=== PATIENT | male | born 1965 | race Caucasian/White ===

== ENCOUNTER 2017-06-13 10:29 | Emergency (ER) | payer MEDICARE ==
[2017-06-13 11:29] LABS: BASOPHILS 0.1 % (0-2); EOSINOPHILS 1.5 % (0-7); HEMATOCRIT 44.2 % (42.0-54.0); HEMOGLOBIN 15.1 g/dL (13.5-17.5); IMMATURE GRANULOCYTES 0.6 % (0-5); LYMPHOCYTES 26.5 % (15-50); MCH 31.1 pg (26.0-34.0); MCHC 34.2 g/dL (31.0-37.0); MCV 91.1 fL (80.0-100.0); MEAN PLATELET VOLUME 11.2 fL (7.4-10.4); NEUTROPHILS 65.3 % (40-80); PLATELET COUNT 236 10x3/uL (130-400); RBC 4.85 10x6/uL (4.20-6.10); RDW 12.5 % (11.5-14.5); WBC 6.8 10x3/uL (4.8-10.8)
[2017-06-13 11:47] LABS: APPEARANCE CLEAR (CLEAR); BILIRUBIN NEGATIVE (NEGATIVE); COLOR DK YELLOW (YELLOW); GLUCOSE 50 mg/dL (NEGATIVE); KETONE NEGATIVE (NEGATIVE); LEUKOCYTE ESTERASE NEGATIVE (NEGATIVE); NITRITE NEGATIVE (NEGATIVE); PROTEIN NEGATIVE (NEGATIVE); UROBILINOGEN NORMAL (NORMAL)
[2017-06-13 12:43] LABS: ALBUMIN 3.5 g/dL (3.4-5.0); ALKALINE PHOSPHATASE 59 U/L (46-116); ALT (SGPT) 33 U/L (10-68); CALC OSMOLALITY 291 mosm/kg (275-300); CALCIUM 8.6 mg/dL (8.5-10.1); CARBON DIOXIDE 25.2 mmol/L (21.0-32.0); CHLORIDE - SERUM 110 mmol/L (98-107); CREATININE - SERUM 0.9 mg/dL (0.6-1.3); GLUCOSE 117 mg/dL (74-106); LIPASE 160 U/L (73-393); PROTEIN - SERUM 7.4 g/dL (6.4-8.2); SODIUM 146 mmol/L (136-145); UREA NITROGEN 12 mg/dL (7-18); eGFR NON AFRICAN AMERICAN > 90 mL/min (90-120)
== END 2017-06-13 15:15 | disposition home or self-care (01) ==
LOC: D.ER 10:29
PROVIDERS: Emergency Medicine
DX: R10.9 Unspecified abdominal pain (principal); E11.9 Type 2 diabetes mellitus without complications

== ENCOUNTER 2017-06-24 07:08 | Emergency (ER) | payer MEDICARE ==
[2017-06-24 08:07] LABS: BASOPHILS 0.2 % (0-2); EOSINOPHILS 0.9 % (0-7); HEMATOCRIT 47.2 % (42.0-54.0); HEMOGLOBIN 16.3 g/dL (13.5-17.5); IMMATURE GRANULOCYTES 0.2 % (0-5); LYMPHOCYTES 12.2 % (15-50); MCH 31.3 pg (26.0-34.0); MCHC 34.5 g/dL (31.0-37.0); MCV 90.6 fL (80.0-100.0); MEAN PLATELET VOLUME 9.5 fL (7.4-10.4); MONOCYTES 5.8 % (2-11); NEUTROPHILS 80.7 % (40-80); PLATELET COUNT 213 10x3/uL (130-400); RBC 5.21 10x6/uL (4.20-6.10); RDW 12.8 % (11.5-14.5); WBC 12.5 10x3/uL (4.8-10.8)
[2017-06-24 08:08] LABS: APPEARANCE HAZY (CLEAR); BILIRUBIN NEGATIVE (NEGATIVE); COLOR DK YELLOW (YELLOW); GLUCOSE 500 mg/dL (NEGATIVE); KETONE SMALL mg/dL (NEGATIVE); LEUKOCYTE ESTERASE NEGATIVE (NEGATIVE); NITRITE NEGATIVE (NEGATIVE); PROTEIN NEGATIVE (NEGATIVE); UROBILINOGEN NORMAL (NORMAL)
[2017-06-24 08:39] LABS: ALBUMIN 3.8 g/dL (3.4-5.0); ALKALINE PHOSPHATASE 77 U/L (46-116); ALT (SGPT) 43 U/L (10-68); AMYLASE - SERUM 49 U/L (25-115); CALC OSMOLALITY 283 mosm/kg (275-300); CALCIUM 9.1 mg/dL (8.5-10.1); CARBON DIOXIDE 23.2 mmol/L (21.0-32.0); CHLORIDE - SERUM 103 mmol/L (98-107); CREATINE KINASE 246 UL (21-232); GLUCOSE 262 mg/dL (74-106); LIPASE 141 U/L (73-393); MAGNESIUM - SERUM 1.7 mg/dL (1.8-2.4); POTASSIUM - SERUM 4.5 mmol/L (3.5-5.1); PROTEIN - SERUM 8.6 g/dL (6.4-8.2); SODIUM 137 mmol/L (136-145); UREA NITROGEN 14 mg/dL (7-18); eGFR NON AFRICAN AMERICAN 83 mL/min (90-120)
[2017-06-24 08:40] LABS: CKMB 3.5 U/L (0.0-3.6)
== END 2017-06-24 10:31 | disposition home or self-care (01) ==
LOC: D.ER 07:08
PROVIDERS: Emergency Medicine
DX: R10.9 Unspecified abdominal pain (principal)

== ENCOUNTER → 2017-06-26 12:05 | Outpatient (CLI) | payer MEDICARE | END | disposition home or self-care (01) | LOC: D.NM 12:05 | DX: R10.9 Unspecified abdominal pain (principal) ==

== ENCOUNTER 2017-07-10 05:59 | Day surgery (SDC) | payer MEDICARE ==
[~2017-07-10] VITALS: Ht 188 cm; Wt 171.9 kg
[~2017-07-10 05:59] MED LIST: ACTOS15 MG PO; GLIPIZIDE10 MG PO; GLUCOPHAGE1000 MG PO; NORCO 7.5/325 T1 TA1 PO; TRULICITY0.75 MG/0. SC; VOLTAREN75 MG PO; WELLBUTRIN SR150 MG PO
[2017-07-10 06:41] LABS: HEMATOCRIT 43.8 % (42.0-54.0); HEMOGLOBIN 14.7 g/dL (13.5-17.5); MCH 30.9 pg (26.0-34.0); MCHC 33.6 g/dL (31.0-37.0); RBC 4.76 10x6/uL (4.20-6.10); RDW 12.7 % (11.5-14.5); WBC 6.7 10x3/uL (4.8-10.8)
[2017-07-10 07:02] LABS: CALC OSMOLALITY 284 mosm/kg (275-300); CALCIUM 8.7 mg/dL (8.5-10.1); CARBON DIOXIDE 37.9 mmol/L (21.0-32.0); CHLORIDE - SERUM 105 mmol/L (98-107); POTASSIUM - SERUM 3.9 mmol/L (3.5-5.1); SODIUM 141 mmol/L (136-145); UREA NITROGEN 14 mg/dL (7-18); eGFR NON AFRICAN AMERICAN 83 mL/min (90-120)
[2017-07-10 07:12] LABS: GLUCOSE 148 mg/dL (74-106)
[2017-07-10 07:39] VITALS: BP 130/76; Ht 188 cm; Wt 171.9 kg
[2017-07-10] MEDS ORDERED: NORCO 7.5/325 T1 TA1 PO (09:31)
== END 2017-07-10 11:55 | disposition home or self-care (01) ==
LOC: D.OPS 05:59 → D.PAN 08:00 → D.OPS 08:15
PROVIDERS: Anesthesiology
DX: K80.20 Calculus of gallbladder without cholecystitis without obstruction (principal); K82.8 Other specified diseases of gallbladder; E11.9 Type 2 diabetes mellitus without complications; J44.9 Chronic obstructive pulmonary disease, unspecified; G47.30 Sleep apnea, unspecified; E66.01 Morbid (severe) obesity due to excess calories; Z68.42 Body mass index [BMI] 45.0-49.9, adult; Z01.812 Encounter for preprocedural laboratory examination

== ENCOUNTER 2017-09-25 14:15 | Emergency (ER) | payer MEDICARE ==
[2017-07-10 07:39] VITALS: BMI 48.7
[2017-09-25 14:51] LABS: BASOPHILS 0.1 % (0-2); EOSINOPHILS 0.8 % (0-7); HEMATOCRIT 47.9 % (42.0-54.0); HEMOGLOBIN 16.5 g/dL (13.5-17.5); IMMATURE GRANULOCYTES 0.4 % (0-5); LYMPHOCYTES 14.3 % (15-50); MCH 30.7 pg (26.0-34.0); MCHC 34.4 g/dL (31.0-37.0); MEAN PLATELET VOLUME 9.2 fL (7.4-10.4); MONOCYTES 8.3 % (2-11); NEUTROPHILS 76.1 % (40-80); PLATELET COUNT 243 10x3/uL (130-400); RBC 5.38 10x6/uL (4.20-6.10); RDW 12.4 % (11.5-14.5); WBC 14.7 10x3/uL (4.8-10.8)
[2017-09-25 15:15] LABS: ALBUMIN 4.1 g/dL (3.4-5.0); ANION GAP 19.7 mmol/L (8-16); BILIRUBIN - TOTAL 0.54 mg/dL (0.2-1.3); CALCIUM 9.1 mg/dL (8.5-10.1); CARBON DIOXIDE 21.7 mmol/L (21.0-32.0); CREATININE - SERUM 1.2 mg/dL (0.6-1.3); POTASSIUM - SERUM 4.4 mmol/L (3.5-5.1); PROTEIN - SERUM 8.4 g/dL (6.4-8.2)
== END 2017-09-25 19:06 | disposition home or self-care (01) ==
LOC: D.ER 14:15
PROVIDERS: Family Medicine
DX: S90.02XA Contusion of left ankle, initial encounter (principal); S90.32XA Contusion of left foot, initial encounter; S30.1XXA Contusion of abdominal wall, initial encounter; W55.29XA Other contact with cow, initial encounter; Y93.89 Activity, other specified; Y92.019 Unspecified place in single-family (private) house as the place of occurrence of the external cause; S93.402A Sprain of unspecified ligament of left ankle, initial encounter; S16.1XXA Strain of muscle, fascia and tendon at neck level, initial encounter; E11.9 Type 2 diabetes mellitus without complications

== ENCOUNTER 2019-01-17 08:30 | Day surgery (SDC) | payer MEDICARE ==
[2019-01-15 11:35] LABS: HEMATOCRIT 42.8 % (42.0-54.0); HEMOGLOBIN 14.4 g/dL (13.5-17.5); MCH 31.1 pg (26.0-34.0); MCHC 33.6 g/dL (31.0-37.0); MCV 92.4 fL (80.0-100.0); MEAN PLATELET VOLUME 8.9 fL (7.4-10.4); RBC 4.63 10x6/uL (4.20-6.10); RDW 13.2 % (11.5-14.5); WBC 7.6 10x3/uL (4.8-10.8)
[2019-01-15 11:50] LABS: CALC OSMOLALITY 288 mosm/kg (275-300); CALCIUM 8.4 mg/dL (8.5-10.1); CARBON DIOXIDE 26.8 mmol/L (21.0-32.0); CHLORIDE - SERUM 105 mmol/L (98-107); GLUCOSE 191 mg/dL (74-106); SODIUM 142 mmol/L (136-145); UREA NITROGEN 15 mg/dL (7-18); eGFR NON AFRICAN AMERICAN 83 mL/min (90-120)
[~2019-01-17] VITALS: Ht 188 cm; Wt 181.4 kg
--- NOTE | ~2019-01-17 | OP ---
PATIENT NAME: EDE PANIAGUA MEDICAL RECORD: [id number] :63 LOCATION:SCOUT ADMISSION DATE: SURGEON: SOPHIE HELM MD DATE OF OPERATION: 01/17/2019 PREOPERATIVE DIAGNOSES: Rotator cuff tear of the left shoulder with impingement syndrome and acromioclavicular arthritis. POSTOPERATIVE DIAGNOSES: Rotator cuff tear of the left shoulder with impingement syndrome, acromioclavicular arthritis, and severe biceps tendinitis. PROCEDURES: 1. Arthroscopic rotator cuff repair of the left shoulder. 2. Arthroscopic biceps tenotomy of the left shoulder. 3. Arthroscopic distal clavicle excision of the left shoulder, done through separate incision - 1 cm. 4. Arthroscopic subacromial decompression, acromioplasty, and bursectomy. SURGEON: Sophie Helm MD ANESTHESIA: General. INTRAOPERATIVE COMPLICATIONS: None. SUMMARY OF PATHOLOGIC FINDINGS: Consistent with preop diagnoses, the patient had full-thickness rotator cuff tear just posterior to the bicipital groove of the supraspinatus. The patient had severe biceps tendinopathy as well as downward sloping acromion and acromioclavicular arthritis. OPERATIVE SUMMARY IN DETAIL: After obtaining the appropriate preoperative orthopedic surgery consent as well as anesthetic consultation, evaluation, and clearance, the patient was brought to the operating room and placed on the operating table in the supine position. After general laryngeal mask was administered, the patient was placed in right lateral decubitus position. All pressure points were well padded to include down leg peroneal pad as well as axillary roll. The patient was held firmly to the operating table using the vacuum pack suction system. The patient's right upper extremity and shoulder were then prepped and draped in routine sterile fashion. The arm was held in the Arthrex traction boom at 30 degrees of forward flexion, 30 degrees of abduction, and 10 pounds of traction laterally. Arthroscopy was established in the glenohumeral joint from the posterior portal. Anterior portal was established from the anterior safe interval. Diagnostic arthroscopy did show the patient to have full-thickness rotator cuff tearing as well as impingement syndrome. In fact, the rotator cuff was torn in a split V fashion with the apex almost back to the glenoid. For this reason, it was felt that open repair would likely be better; however, prior to the open repair, attention was turned to the subacromial space. [place] tissue ablation system was utilized to denude the undersurface of the acromion of all soft tissue elements. A 5-0 barrel bur was used to perform a subacromial decompression of the acromioclavicular joint. Through a separate anterior arthroscopic portal, distal clavicle was excised for 1 cm. Having completed this, a small arthrotomy was created for direct visualization of the rotator cuff. Julq-or-rtnh repair was done with standard #2 FiberWire. At this point, an Arthrex SpeedBridge was then employed for lateral fixation i.e., medial row was then followed by crisscross and anchored lateral row for excellent reapproximation of the supraspinatus tendon back to OPERATIVE REPORT [id number] EDE PANIAGUA AXEL the supraspinatus tendinous footprint which had been decorticated. Having completed this, small arthrotomy was closed with 2-0 Vicryl followed by 4-0 Prolene. The arthroscopy portals were closed likewise. Sterile dressings were applied. The patient was awakened and taken to recovery room in stable condition. All final needle and sponge counts were correct. TRANSINT:[id number] Voice Confirmation ID: [id number] DOCUMENT ID: [id number] VOLODYMYR TATUM, SOPHIE REARDON CC: [id number] DICTATION DATE: 01/21/19916 RECORDS MANAGEMENT SPECIALIST: 01/21/19 1152 [facility] 01/17/19 [place] 117970 [place] [id number]
[~2019-01-17 08:30] MED LIST changes: -ACTOS15 MG PO; +ALBUTEROL SULF8.5 GM INH; +ALEVE220 MG PO; +IPRAT-ALBUT 0.5-3 ML UPD; +PIOGLITAZONE15 MG PO; +VICTOZA0.6 MG/0.1 SQ
[2019-01-17 09:48] VITALS: BP 141/71; Ht 188 cm; Wt 181.4 kg
[2019-01-17] MEDS ORDERED: HYDROCODON-ACE1 EA10 PO (12:41)
--- NOTE | 2019-01-17 16:24 | NUR ---
1500 IV DC'D. CATHETER INTACT. NO BLEEDING AT SITE. BANDAID APPLIED. 1505 PT SITTING UP ON SIDE OF BED. C/O BEING TIRED OF LYING ON THE STRETCHER. TOLERATING SITTING UP. NO C/O DIZZINESS. O2 SAT INCREASING AFTER SITTING UP ON SIDE OF BED.
== END 2019-01-17 16:08 | disposition home or self-care (01) ==
LOC: D.OPS 08:30 → D.PAN 11:30 → D.OPS 11:30 → D.PAN 12:45 → D.OPS 16:08
PROVIDERS: Anesthesiology; ATTEND Orthopaedic Surgery
DX: M75.122 Complete rotator cuff tear or rupture of left shoulder, not specified as traumatic (principal); M75.42 Impingement syndrome of left shoulder; M13.812 Other specified arthritis, left shoulder; M75.22 Bicipital tendinitis, left shoulder; Z01.812 Encounter for preprocedural laboratory examination

== ENCOUNTER 2019-05-11 12:45 | Emergency (ER) | payer MEDICARE ==
[~2019-05-11] VITALS: Ht 188 cm; Wt 177.7 kg
[~2019-05-11 12:45] MED LIST changes: +HYDROCODON-ACE1 EA10 PO
[2019-05-11 13:02] VITALS: Ht 188 cm; Wt 177.7 kg
[2019-05-11 14:18] LABS: BASOPHILS 0.2 % (0-2); EOSINOPHILS 0.4 % (0-7); HEMATOCRIT 48.9 % (42.0-54.0); IMMATURE GRANULOCYTES 0.4 % (0-5); LYMPHOCYTES 18.8 % (15-50); MCH 31.3 pg (26.0-34.0); MCHC 34.8 g/dL (31.0-37.0); MCV 89.9 fL (80.0-100.0); MEAN PLATELET VOLUME 9.5 fL (7.4-10.4); MONOCYTES 7.1 % (2-11); NEUTROPHILS 73.1 % (40-80); RBC 5.44 10x6/uL (4.20-6.10); RDW 12.9 % (11.5-14.5); WBC 11.6 10x3/uL (4.8-10.8)
[2019-05-11 14:27] LABS: PLATELET COUNT 258 10x3/uL (130-400)
[2019-05-11 14:32] LABS: ALKALINE PHOSPHATASE 88 U/L (46-116); ALT (SGPT) 38 U/L (10-68); AMYLASE - SERUM 66 U/L (25-115); BILIRUBIN - TOTAL 0.86 mg/dL (0.2-1.3); CALC OSMOLALITY 275 mosm/kg (275-300); CALCIUM 9.2 mg/dL (8.5-10.1); CARBON DIOXIDE 20.6 mmol/L (21.0-32.0); CHLORIDE - SERUM 100 mmol/L (98-107); CREATININE - SERUM 0.9 mg/dL (0.6-1.3); GLUCOSE 147 mg/dL (74-106); INR 1.07 (0.85-1.17); LIPASE 210 U/L (73-393); POTASSIUM - SERUM 3.8 mmol/L (3.5-5.1); PROTEIN - SERUM 8.9 g/dL (6.4-8.2); PROTIME 13.4 SECONDS (11.6-15.0); SODIUM 136 mmol/L (136-145); UREA NITROGEN 15 mg/dL (7-18); eGFR NON AFRICAN AMERICAN > 90 mL/min (90-120)
[2019-05-11 17:50] VITALS: BP 152/88
== END 2019-05-11 18:25 | disposition short-term general hospital (02) ==
LOC: D.ER 12:45
PROVIDERS: Family Medicine
DX: K22.2 Esophageal obstruction (principal)

== ENCOUNTER 2020-03-04 07:15 | Day surgery (SDC) | payer MEDICARE ==
[~2020-03-04] VITALS: Ht 188 cm; Wt 169.1 kg
--- NOTE | ~2020-03-04 | OP ---
PATIENT NAME: EDE PANIAGUA MEDICAL RECORD: [id number] :63 LOCATION:[facility] ADMISSION DATE: SURGEON: GEMMA HUERTAS DO DATE OF OPERATION: 03/04/2020 PROCEDURE: Colonoscopy with polypectomy. INDICATIONS FOR PROCEDURE: Diarrhea, irregular bowel habits, lower abdominal pain. SCOPE: Olympus video pediatric colonoscope. MEDICATIONS: Propofol 900 mg IV per anesthesia. WITHDRAWAL TIME: 14 minutes. ESTIMATED BLOOD LOSS: Minimal. COMPLICATIONS: None. FINDINGS: Informed consent was given. The patient was made comfortable with the above medication. After reaching an adequate level of sedation by slow IV push, the patient was placed on his left side. A digital rectal examination was performed and it was normal. The endoscope was then advanced under direct visualization through the rectum to the cecum, confirmed by the presence of the appendiceal orifice and ileocecal valve. The endoscope was slowly withdrawn and mucosa was carefully examined. The prep quality was poor to fair. An extensive amount of time was used cleaning out the remaining stool. There were 3 polyps visualized on today's examination. Two were located in the descending colon. They were both benign appearing and sessile and ranged in size from 4 up to 6 mm in diameter. They were both removed using a hot snare. In the ascending colon, there was a benign appearing sessile polyp, which measured approximately 4 mm in diameter. It was removed using a hot snare. There were no diverticula visualized on today's examination. Retroflexion was performed in the rectum with visualization of grade I internal hemorrhoids without bleeding. During this procedure, stool was collected to submit to the lab to rule out any infectious causes for change in bowel habits. Random biopsies were also taken to submit for histopathology and to rule out the presence of microscopic colitis. The endoscope was withdrawn from the patient. The patient tolerated the procedure well and there were no complications. IMPRESSION: 1. Three polyps as described above, removed using a hot snare. 2. Grade I internal hemorrhoids without bleeding. 3. Otherwise, normal colonoscopy. Stool was collected and random biopsies were taken. PLAN AND RECOMMENDATIONS: 1. Discharge home when recovery parameters are met. 2. Follow up biopsy specimen results. 3. High fiber diet. 4. Supplement diet with 1 tablespoon of fiber daily. 5. Dicyclomine 20 mg t.i.d. p.r.n. loose stools or abdominal pain and cramping. 6. Recall colonoscopy in 3 years. 7. Follow up in GI clinic in 1 month. OPERATIVE REPORT [id number] EDE PANIAGUA TRANSINT:[id number] Voice Confirmation ID: [id number] DOCUMENT ID: [id number] FERNANDAGEMMA WOODS CC: [id number] DICTATION DATE: 03/04/20 1048 LEASING CONSULTANT: 03/04/20 1628 [facility] 03/04/20 [place] [id number] [place] [id number]
[2020-03-04 07:43] LABS: CALC OSMOLALITY 281 mosm/kg (275-300); CALCIUM 8.5 mg/dL (8.5-10.1); CARBON DIOXIDE 26.9 mmol/L (21.0-32.0); CHLORIDE - SERUM 104 mmol/L (98-107); CREATININE - SERUM 0.8 mg/dL (0.6-1.3); SODIUM 138 mmol/L (136-145); UREA NITROGEN 6 mg/dL (7-18); eGFR NON AFRICAN AMERICAN > 90 mL/min (90-120)
[2020-03-04 07:45] LABS: GLUCOSE 239 mg/dL (74-106)
[2020-03-04 07:52] LABS: HEMATOCRIT 43.6 % (42.0-54.0); HEMOGLOBIN 14.4 g/dL (13.5-17.5); MCH 30.5 pg (26.0-34.0); MCV 92.4 fL (80.0-100.0); MEAN PLATELET VOLUME 8.8 fL (7.4-10.4); RBC 4.72 10x6/uL (4.20-6.10); WBC 5.4 10x3/uL (4.8-10.8)
[2020-03-04] MEDS ORDERED: OMEPRAZOLE20 M1 PO (08:58)
[2020-03-04] MEDS ORDERED: JANUVIA25 MG PO (08:58)
[2020-03-04 09:36] VITALS: BP 144/76; Ht 188 cm; Wt 169.1 kg
[2020-03-04] MEDS ORDERED: PIOGLITAZONE15 MG PO (09:52)
--- NOTE | 2020-03-04 11:12 | NUR ---
DC INSTRUCTIONS GIVEN TO PT/SPOUSE. STATE UNDERSTANDING. DC'D IV CATH FULLY INTACT.
--- NOTE | 2020-03-04 11:28 | NUR ---
PT LEFT UNIT VIA WC AT 1116
== END 2020-03-04 11:18 | disposition home or self-care (01) ==
LOC: D.OPS 07:15
PROVIDERS: Anesthesiology; ATTEND Internal Medicine Gastroenterology
DX: R19.7 Diarrhea, unspecified (principal); R19.4 Change in bowel habit; R13.10 Dysphagia, unspecified; R10.30 Lower abdominal pain, unspecified; K63.5 Polyp of colon; K64.0 First degree hemorrhoids; E11.9 Type 2 diabetes mellitus without complications; Z79.84 Long term (current) use of oral hypoglycemic drugs

== ENCOUNTER 2020-03-24 11:13 | Outpatient (CLI) | payer MEDICARE ==
[~2020-03-24] VITALS: Ht 188 cm; Wt 169.5 kg
--- NOTE | ~2020-03-24 | HEMODYNAMI ---
PATIENT:EDE PANIAGUA MEDICAL RECORD: [id number] : 63 LOCATION:[facility] ADMISSION DATE: 03/24/20 Generatedon:03/24/202013:30 Patient name: EDE PANIAGUA Patient #: [id number] : 1965 Date of study: 03/24/2020 Page: Of Hemodynamic Procedure Report Patient Data Patient Demographics Procedure consent was obtained First Name: EDE Gender: Male Last Name: ARCELIA : 1965 Middle Initial: AXEL Age: 54 year(s) Patient #: [id number] Race: SSN: [id number] Additional ID: [id number] Contact details Address: [address] [place] [address] State: [place] City: [place] Zip code: [address] Past Medical History Allergies Allergen Reaction Date Comments Reported Other allergy 03/24/2020 SEAFOOD, WASPS, IODINE Admission Admission Data Admission Date: 03/24/2020 Admission Time: 11:13 Arrival Date: 03/24/2020 Arrival Time: 13:30 Admit Source: Other Insurance Payor: Medicare [facility] #: [id number] Height (in.): 73.62 BSA: 2.82 (m2) Height (cm.): 187 BMI: 48.33 (kg/m2) Weight (lbs.): 372.58 Weight (kg.): 169 Lab Results Lab Result Date: 03/24/2020 Lab Result Time: 0:00 Biochemistry Name Units Result Min Max BUN mg/dl 14 --(--*-)-- 7 18 Creatinine mg/dl 1 --(--*-)-- 0.6 1.3 eGFR ml/min 82.62557 *-(----)-- 90 120 NONAFRICAN Procedure Procedure Types Cath Procedure Diagnostic Procedure LHC [facility] w/Coronaries Sedation Charges Moderate Sedation up to 15 minutes Procedure Description Procedure Date Procedure Date: 03/24/2020 Procedure Start Time: 13:11 Procedure End Time: 13:26 Procedure Staff Name Function Sherwin Gomez MD Performing Physician Stephanie Rosado RT Monitor Cindi Fang RT Scrub Floyd Will RN Nurse Procedure Data Cath Procedure Fluoroscopy Diagnostic fluoroscopy Total fluoroscopy Time: 5.7 time: 5.7 min min Diagnostic fluoroscopy Total fluoroscopy dose: 871 dose: 871 mGy mGy Contrast Material Contrast Material Type Amount (ml) Isovue 300 71 Entry Location Entry Primary Successful Side Size Upsize Upsize Entry Closure Bazzi ccessful Closure Location (Fr) 1 (Fr) 2 (Fr) Remarks Device Remarks Radial Right 6 Fr Mechanical artery Short Compression Estimated blood loss: 5 ml Diagnostic catheters Device Type Used For End Catheter Placement DIAGNOSTIC [place] 110cm 5 Multi-vessel Fr catheter ([id number]) Angiography DIAGNOSTIC Pigtail 5Fr LV Angiography catheter ([id number]) Procedure Complications No complications Procedure Medications Medication Administration Route Dosage Oxygen etCO2 Nasal cannula 2 l/min Lidocaine 2% added to field 20 Heparin Flush Bag added to field 2 bags (1000units/500ml NS) 0.9% NaCl I.V. 100 ml/hr Versed I.V. 2 mg Fentanyl I.V. 100 mcg Radial Cocktail I.A. 1 syringe (Verapamil 2mg/Nitro 400mcg/Heparin 1500units) Lopressor I.V. 5 mg Versed I.V. 2 mg Fentanyl I.V. 100 mcg Hemodynamics Rest BSA: 2.82 (m2) O2 Consumption: Estimated: 365.35 (ml/min) O2 Consumption indexed : Estimated:129.56 (ml/min/m) Heart Rate: 99 (bpm) Pressure Samples Time Site Value (mmHg) Purpose Heart Use Rate(bpm) 13:23 LV 166/71,45 Snapshot 103 Gradients Valve Time Site Site Mean SEP/DFP Peak To Heart Use 1 2 (mmHg) (sec/min) Peak Rate (mmHg) (bpm) Aortic 13:23 LV AO 106 Snapshots Pre Cath Intra NCS Post Cath Vital Signs Time Heart Resp SPO2 etCO2 NIBP (mmHg) Rhythm Pain Sedation Rate (ipm) (%) (mmHg) Status Level (bpm) 13:04:44 99 13 95 0 167/89(132) NSR 0 (11) 10(A) , No pain 13:09:31 99 11 93 0 160/93(128) NSR 0 (11) 10(A) , No pain 13:14:10 99 12 93 0 144/83(118) NSR 0 (11) 10(A) , No pain 13:18:46 99 36 94 0 129/86(111) NSR 0 (11) 9(A) , No pain 13:23:45 101 20 97 0 146/89(0) NSR 0 (11) 9(A) , No pain 13:28:09 94 36 95 0 161/90(121) NSR 0 (11) 10(A) , No pain Medications Time Medication Route Dose Verified Delivered Reason Notes Effectiveness by by 13:04:46 Oxygen etCO2 2 l/min Sherwin Barrientos used for Nasal [facility] Will RN procedure cannula 13:04:53 Lidocaine 2% added 20ml Sherwin Courtney for local to vial [facility] anesthetic field MD TATUM 13:04:59 Heparin Flush added 2 bags Sherwin Courtney used for Bag to [facility] procedure (1000units/500ml field MD TATUM NS) 13:05:08 0.9% NaCl I.V. 100 Sherwin Barrientos Per ml/hr [facility] garg MD 13:11:12 Versed I.V. 2 mg Sherwin Barrientos for sedation [facility] Will RN, MD 13:11:22 Fentanyl I.V. 100 mcg Sherwin Barrientos for sedation [facility] Will RN, MD 13:13:36 Radial Cocktail I.A. 1 Sherwin Courtney for (Verapamil syringe [facility] vasodilation 2mg/Nitro MD TATUM 400mcg/Heparin 1500units) 13:16:00 Versed I.V. 2 mg Sherwin Barrientos for sedation [facility] Will RN, MD 13:16:04 Fentanyl I.V. 100 mcg Sherwin Barrientos for sedation [facility] Will RN, MD 13:22:59 Lopressor I.V. 5 mg Sherwin Barrientos Per [facility] garg MD Procedure Log Time Note 12:39:50 Informed consent obtained and on chart 12:41:24 Arrival Date: 03/24/2020 1:30:00 PM 12:41:45 Admit Source: Other 12:41:48 Insurance Payor : Medicare 12:43:49 Patient Height : 73.62 inches 12:43:54 Patient Weight : 372.58 lbs 12:44:20 Diagnostic Cath Status : Elective 12:44:46 Procedure Status Elective Heart Cath (OP). 12:44:49 Floyd Will RN sent for patient. Start room use. 12:44:50 Time tracking: Regular hours (M-F 7:00 - 5:00) 12:44:57 Plan of Care:Hemodynamics will remain stable., Cardiac rhythm will remain stable., Comfort level will be maintained., Respiratory function will remain adequate., Patient/ family verbilizes understanding of procedure., Procedure tolerated without complication., Recovers from procedure without complications.. 12:54:40 Patient received from Pre/Post Procedure Room to CCL 1 Alert and oriented. Tansferred to table in Supine position. 12:54:41 Warm blankets applied, and surinder hugger turned on for patient comfort. 12:54:42 Correct patient and procedure confirmed by team. 12:54:43 ECG and BP/O2 sat monitors applied to patient. 12:56:27 H&P Date Dictated: 03/13/2020 Within 30 days and on chart., H&P Addendum completed by physician on day of procedure. (MUST COMPLETE FOR ALL OUTPATIENTS). 12:56:28 Pre-procedure instructions explained to patient. 12:56:28 Pre-op teaching completed and patient verbalized understanding. 12:56:30 Family in patients room. 12:56:31 Patient NPO since Midnight. 12:56:45 Patient allergic to Other allergySEAFOOD, WASPS, IODINE 12:56:47 Is the patient allergic to Iodine/contrast media? Yes. 12:56:48 Was the patient premedicated? Yes 12:56:50 Is patient on blood thinner?No 12:56:53 Patient diabetic? Yes. 12:56:54 If diabetic: On Metformin? Yes 12:56:56 If on Metformin: Last Dose? 03/22/2020 12:56:59 Previous problem with sedation/anesthesia? Yes ? 12:57:01 Snore? Yes 12:57:02 Sleep apnea? Yes 12:57:04 Deviated septum? No 12:57:05 Opens mouth fully? Yes 12:57:07 Sticks out tongue? Yes 12:57:09 Airway obstruction? Yes COPD 12:57:13 Dentures? No ? 12:58:15 Modified Wayne's test Ulnar < 7 seconds 12:58:17 Patient pain scale 0/10 ?. 12:58:22 IV patent on arrival in left hand with 0.9% NaCl at [facility]. 12:58:48 Lab Result : Creatinine 1 mg/dl 12:58:48 Lab Result : BUN 14 mg/dl 12:58:48 Lab Result : eGFR NONAFRICAN 82.80591 ml/min 12:58:50 Lab results completed and on chart. 12:59:17 Stress Test: no; N/A ? 12:59:21 Right Radial & Right Groin area was prepped with chlora-prep and draped in sterile fashion 12:59:22 Alarms reviewed by R. N. 12:59:22 Sharps counted by scrub and verified by R.N. 13:02:08 Use device set Radial Dx or PCI 13:02:44 ACIST Syringe (71262) opened to sterile field. 13:02:46 Bag Decanter (2002S) opened to sterile field. 13:02:46 ACIST Hand Control (86857) opened to sterile field. 13:02:46 ACIST Manifold (60990) opened to sterile field. 13:02:47 Tegaderm 4 x 4 (1626W) opened to sterile field. 13:02:48 Medline Cath Pack ([id number]) opened to sterile field. 13:02:49 MBrace Wrist Support ([id number]) opened to sterile field. 13:02:50 EMERALD Guide Wire (355-182) opened to sterile field. 13:02:50 SHEATH 6FR RAIN (0779512) opened to sterile field. 13:02:57 Vital chart was started 13:02:59 Baseline sample Acquired. 13:03:02 Rhythm: sinus rhythm 13:03:03 Full Disclosure recording started 13:03:10 Pre procedure: right dorsailis pedis pulse 1+ Palpable, but thready & weak; easily obliterated 13:04:46 Oxygen 2 l/min etCO2 Nasal cannula was administered by Floyd Will RN; used for procedure; Verbal order read back and verified. 13:04:53 Lidocaine 2% 20ml vial added to field was administered by Sherwin Gomez MD; for local anesthetic; Verbal order read back and verified. 13:04:59 Heparin Flush Bag (1000units/500ml NS) 2 bags added to field was administered by Sherwin Gomez MD; used for procedure; Verbal order read back and verified. 13:05:08 0.9% NaCl 100 ml/hr I.V. was administered by Floyd Will RN; Per physician; Verbal order read back and verified. 13:09:44 Risk of Mortality: 0.2 13:09:50 Risk of blood transfusion: 0.1 13:09:54 Risk of JAZMIN: 0.2 13:10:08 Physician arrived 13:: --------ALL STOP TIME OUT------ 13:: Final Timeout: patient, procedure, and site verified with staff and physician. All members of the team are in agreement. 13:10:11 Right Radial & Right Groin site verified by team. 13:10:16 Fire Safety Assessment: A--An alcohol-based skin anteseptic being used preoperatively., C--Open oxygen or nitrous oxide is being used., D--An ESU, laser, or fiber-optic light is being used. 13:10:18 Physical assessment completed. ASA score P 2 - A patient with mild systemic disease as per Sherwin Gomez MD. 13:10:26 2) 60-89 Mildly reduced kidney function, and other findings (as for stage 1) point to kidney disease. 13:10:45 Maximum allowable contrast dose (3.7 X eGFR X 0.75)208 ml. 13:10:56 Sedation plan: IV Moderate Sedation Medication:Versed, Fentanyl 13:11:02 Procedure started. 13:11:06 Local anesthetic to right radial artery with Lidocaine 2% by Sherwin Gomez MD.INITIAL ACCESS ONLY 13:11:12 Versed 2 mg I.V. was administered by Floyd Will RN; for sedation; Verbal order read back and verified. 13:11:22 Fentanyl 100 mcg I.V. was administered by Floyd Will RN; for sedation; Verbal order read back and verified. 13:13:36 Radial Cocktail (Verapamil 2mg/Nitro 400mcg/Heparin 1500units) 1 syringe I.A. was administered by Sherwin Gomez MD; for vasodilation; Verbal order read back and verified. 13:13:41 A 6 Fr Short sheath was inserted into the Right Radial artery 13:14:36 A DIAGNOSTIC [place] 110cm 5 Fr catheter ([id number]) was advanced over the wire and used for Multi-vessel Angiography. 13:16:00 Versed 2 mg I.V. was administered by Floyd Will RN; for sedation; Verbal order read back and verified. 13:16:04 Fentanyl 100 mcg I.V. was administered by Floyd Will RN; for sedation; Verbal order read back and verified. 13:17:03 RCA angiography performed. 13:17:06 Injector settings: Ml/sec: 3, Volume: 6, 13:17:55 Catheter removed. 13:19:00 GUIDE 5FR EBU 3.5 catheter ([id number]) opened to sterile field. 13:21:04 LCA angiography performed. 13:21:06 Injector settings: Ml/sec: 3, Volume: 6, 13:22:01 Catheter removed. 13:22:11 A DIAGNOSTIC Pigtail 5Fr catheter ([id number]) was advanced over the wire and used for LV Angiography. 13:22:59 Lopressor 5 mg I.V. was administered by Floyd Will RN; Per physician; Verbal order read back and verified. 13:23:25 LV hemodynamics recorded. 13:23:26 LV gram done using CHAVIS 13:23:29 Injector settings: Ml/sec: 5, Volume: 15, 13:23:41 EF : 55 % 13:23:47 Catheter removed. 13:23:55 Sheath removed intact; hemostasis achieved with Mechanical Compression to the Right Radial artery. 13:23:57 Procedure ended.(Physican Out) 13:24:45 Fluoroscopy time 05.70 minutes. 13:24:49 Fluoroscopy dose: 871 mGy 13:24:49 Flurop Dose total: 871 13:24:54 Dose Area Product 89664 mGy/cm. 13:24:59 Contrast amount:Isovue 300 71ml. 13:25:00 Maximum allowable dose exceeded? No. 13:25:02 Sharps counted by scrub and verified by R.N. 13:25:04 [place] band inflated with 9cc of air. 13:25:06 Insertion/operative site no bleeding no hematoma. 13:25:09 Post right radial artery:stable 13:25:11 Post Procedure Pulses reassessed and unchanged 13:25:20 Post procedure rhythm: unchanged. 13:25:23 Estimated blood loss: 5 ml 13:25:25 Post procedure instruction explained to patient.Patient verbalizes understanding. 13:25:25 Patient needs reinforcement of post procedure teaching. 13:25:36 Procedure type changed to Cath procedure, Diagnostic procedure, LHC, C w/Coronaries, Sedation Charges, Moderate Sedation up to 15 minutes 13:25:57 Procedure and supply charges have been captured, reviewed, submitted and are correct. 13:26:03 Procedure Complication : No complications 13:26:07 Vital chart was stopped 13:26:09 [facility] Findings: mild to moderate CAD (<70%) 13:26:10 Operative report dictated upon procedure completion. 13:26:11 See physician's report for complete and final results. 13:26:13 Report given to Pre/Post Procedure Room. 13:26:15 Patient transfered to Pre/Post Procedure Room with Stretcher. 13:26:17 Procedure ended. 13:26:17 Full Disclosure recording stopped 13::22 End room use (Document Last) 13:29:14 ZEPHYR LARGE TR BAND (686738) opened to sterile field. 13:29:52 TR BAND Standard ([id number]) opened to sterile field. 13:30:10 TR BAND Large ([id number]) opened to sterile field. Device Usage Item Name Manufacture Quantity Catalog Hospital Part Current Minima l Lot# / Number Charge Number Stock Stock Serial# Code ACIST Acist 1 58806 037784 922664 029002 20 Syringe Medical (03830) Systems Inc Bag Microtek 1 008404 45910 451046 5 Decanter Medical Inc. () ACIST Hand Acist 1 64061 780798 460998 497327 5 Control Medical (11917) Systems Inc ACIST Acist 1 83199 379643 565318 864848 5 Manifold Medical (97234) Systems Inc Tegaderm 4 3M 1 1626W 355707 615027 747143 5 x 4 (1626W) Medline Medline 1 [id number] 250334 17780 994355 5 Cath Pack ([id number]) MBrace Advanced 1 140-0250-00 579518 11501 350312 5 Wrist Vascular Support Dynamics ([id number]) EMERALD Cardinal 1 502-075 180323 299537 645701 5 Guide Wire [facility] (266-571) SHEATH 6FR Cardinal 1 [id number] 875206 0674835 432492 5 [facility] (7204711) DIAGNOSTIC Terumo 1 40-5356 946765 612787 317085 5 [place] 110cm 5 Fr catheter (965917) GUIDE 5FR Medtronic 1 [id number] 488048 826499 103996 1 EBU 3.5 catheter ([id number]) DIAGNOSTIC Cardinal 1 [id number] 215372 075224 409355 5 Pigtail 5Fr Health catheter (923455S) ZEPHYR Cardinal 1 680927 852909 5563026 371556 5 LARGE TR Health BAND (030979) TR BAND Terumo 1 [id number] 866687 223721 507851 40 Standard ([id number]) TR BAND Terumo 1 [id number] 824471 657689 995813 40 Large ([id number]) Signature Audit [place] Stage Time Signature Unsigned Intra-Procedure 03/24/2020 Stephanie Rosado 1:29:52 PM RT(R) Intra-Procedure 03/24/2020 Floyd Will RN 1:30:10 PM Intra-Procedure 03/24/[address] 1:30:36 PM Christopher [place]UM [place] [id number] [place] [address]
[~2020-03-24 11:13] MED LIST changes: +JANUVIA25 MG PO; +OMEPRAZOLE20 M1 PO
[2020-03-24] MEDS ORDERED: PIOGLITAZONE15 MG PO (11:39)
[2020-03-24] MEDS ORDERED: VICTOZA0.6 MG/0.1 SQ (11:39)
[2020-03-24] MEDS ORDERED: OMEPRAZOLE20 M1 PO (11:40)
[2020-03-24 11:55] VITALS: BP 158/86; Ht 188 cm; Wt 169.5 kg
[2020-03-24 12:29] LABS: ALT (SGPT) 44 U/L (10-68); CALC OSMOLALITY 282 mosm/kg (275-300); CALCIUM 8.7 mg/dL (8.5-10.1); CHLORIDE - SERUM 100 mmol/L (98-107); CHOL - HDL RATIO 2.1 ratio (2.3-4.9); CHOLESTEROL, TOTAL 146 mg/dL (0-200); GLUCOSE 347 mg/dL (74-106); HDL CHOLESTEROL 70 mg/dL (32-96); LDL CHOLESTEROL 71 mg/dL (0-100); POTASSIUM - SERUM 4.2 mmol/L (3.5-5.1); SODIUM 134 mmol/L (136-145); TRIGLYCERIDE 28 mg/dL (30-200); UREA NITROGEN 14 mg/dL (7-18); eGFR NON AFRICAN AMERICAN 82 mL/min (90-120)
[2020-03-24 12:48] LABS: HEMATOCRIT 46.6 % (42.0-54.0); HEMOGLOBIN 15.7 g/dL (13.5-17.5); LYMPHOCYTES 8.1 % (15-50); MCH 30.1 pg (26.0-34.0); MCHC 33.7 g/dL (31.0-37.0); MCV 89.3 fL (80.0-100.0); MEAN PLATELET VOLUME 9.3 fL (7.4-10.4); NEUTROPHILS 90.7 % (40-80); PLATELET COUNT 241 10x3/uL (130-400); RBC 5.22 10x6/uL (4.20-6.10); RDW 12.7 % (11.5-14.5); WBC 9.3 10x3/uL (4.8-10.8)
--- NOTE | 2020-03-24 13:40 | NUR ---
PT REC'D TO ROOM 8 VIA STRETCHER FROM INFORMATION TECHNOLOGY COORDINATOR. MONITORS ESTAB. PT DROWSY, AT BS. SEE DIRECTOR ORANGE. ALARMS ON AND C/L IN REACH.
--- NOTE | 2020-03-24 13:55 | NUR ---
R WRIST SITE C/D/I, NO S/S BLEEDING OR SWELLING. PULSES PALP, BRISK CAP REFILL. VSS. PT GIVEN WATER AND GLUCERNA PER REQUEST. ALARMS ON AND C/L IN REACH.
--- NOTE | 2020-03-24 14:25 | NUR ---
R WRIST SITE C/D/I, NO S/S BLEEDING, BRISK CAP REFILL. PT SITTING UP IN BED, SANDWICH TRAY PROVIDED. AT BS. ALARMS ON AND C/L IN REACH.
--- NOTE | 2020-03-24 14:40 | NUR ---
3CC AIR REMOVED FROM Z BAND. NO S/S BLEEDING. VSS. C/L IN REACH.
--- NOTE | 2020-03-24 14:50 | NUR ---
TOTAL 5CC AIR REMOVED FROM Z BAND, NO S/S BLEEDING.
--- NOTE | 2020-03-24 15:00 | NUR ---
ALL AIR REMOVED FROM Z BAND, NO S/S BLEEDING. VSS. WILL CONT CLOSE MONITORING.
--- NOTE | 2020-03-24 15:15 | NUR ---
Z BAND REMOVED, NO S/S BLEEDING. DSG APPLIED. PIV D/C'D INTACT, DSG APPLIED. PT UP TO GET DRESSED AND GO TO BR INDEPENDENTLY.
--- NOTE | 2020-03-24 15:25 | NUR ---
ARM BOARD IN PLACE. ALL D/C INSTRUCTIONS REVIEWED WITH PT AND .
--- NOTE | 2020-03-24 15:35 | NUR ---
PT D/C'D TO PRIVATE VEHICLE WITH . PT HAS ALL PAPER WORK AND BELONGINGS.
--- NOTE | 2020-03-25 09:31 | OP ---
PATIENT NAME: EDE PANIAGUA MEDICAL RECORD: [id number] :63 LOCATION:D.CAT ADMISSION DATE: SURGEON: MATTHEW SANCHEZ MD DATE OF OPERATION: 03/24/2020 PROCEDURE: Left heart catheterization, selective coronary angiography, right radial approach. CATHETERS: [place] catheter, radial sheath. The procedure was well tolerated. The patient returned to the gomez, sheath removed, TR band placed. FINDINGS: Left ventriculography in 30-degree CHAVIS view; normal wall motion, normal systolic function. CORONARY ANATOMY: LEFT MAIN: Left main is free of disease. LAD: Free of disease in the diagonal system. CIRCUMFLEX: Free of disease in the marginal system. RIGHT CORONARY ARTERY: Dominant artery, gives rise to PDA, free of disease. IMPRESSION: Normal LV systolic function, normal coronary anatomy. TRANSINT:[id number] Voice Confirmation ID: [id number] DOCUMENT ID: [id number] MATTHEW SANCHEZ MD at 0931 CC: [id number] DICTATION DATE: 03/24/20 1340 SUPERVISOR METER SHOP: 03/25/20 0048 DEP CLI 03/24/20 [place] [id number] [place] [id number]
== END 2020-03-24 15:35 | disposition home or self-care (01) ==
LOC: D.CATH 11:13
PROVIDERS: ATTEND Internal Medicine Interventional Cardiology
DX: R60.9 Edema, unspecified (principal); I25.119 Atherosclerotic heart disease of native coronary artery with unspecified angina pectoris; E78.5 Hyperlipidemia, unspecified; E11.9 Type 2 diabetes mellitus without complications; Z79.84 Long term (current) use of oral hypoglycemic drugs

== ENCOUNTER 2020-04-01 16:49 | Emergency (ER) | payer MEDICARE ==
[~2020-04-01] VITALS: Ht 188 cm; Wt 175.5 kg
[2020-04-01 16:57] VITALS: Ht 188 cm; Wt 175.5 kg
[2020-04-01] MEDS ORDERED: BENTYL 20 MG TA20 MG PO (17:01)
[2020-04-01] MEDS ORDERED: CYCLOBENZAPRINE10 MG PO (17:01)
[2020-04-01] MEDS ORDERED: GLIPIZIDE10 MG PO (17:01)
[2020-04-01] MEDS ORDERED: PIOGLITAZONE15 MG PO (17:02)
[2020-04-01] MEDS ORDERED: ATIVAN1 MG PO (17:02)
[2020-04-01 17:56] LABS: BASOPHILS 0.3 % (0-2); EOSINOPHILS 1.3 % (0-7); HEMATOCRIT 43.2 % (42.0-54.0); HEMOGLOBIN 14.3 g/dL (13.5-17.5); IMMATURE GRANULOCYTES 0.1 % (0-5); LYMPHOCYTES 28.1 % (15-50); MCH 30.6 pg (26.0-34.0); MCHC 33.1 g/dL (31.0-37.0); MCV 92.3 fL (80.0-100.0); MEAN PLATELET VOLUME 9.3 fL (7.4-10.4); MONOCYTES 8.1 % (2-11); NEUTROPHILS 62.1 % (40-80); RBC 4.68 10x6/uL (4.20-6.10); RDW 12.9 % (11.5-14.5); WBC 6.7 10x3/uL (4.8-10.8)
[2020-04-01 18:02] LABS: PLATELET COUNT 174 10x3/uL (130-400)
[2020-04-01 18:09] LABS: APTT 25.2 SECONDS (22.8-39.4); INR 1.02 (0.85-1.17); PROTIME 13.3 SECONDS (11.6-15.0)
[2020-04-01 18:10] LABS: D-DIMER-QUANTITATIVE < 0.27 ug/mLFEU (0.20-0.54)
[2020-04-01 18:20] LABS: CALC OSMOLALITY 284 mosm/kg (275-300); CALCIUM 8.1 mg/dL (8.5-10.1); CARBON DIOXIDE 26.3 mmol/L (21.0-32.0); CHLORIDE - SERUM 104 mmol/L (98-107); CREATININE - SERUM 1.1 mg/dL (0.6-1.3); POTASSIUM - SERUM 3.9 mmol/L (3.5-5.1); SODIUM 138 mmol/L (136-145); UREA NITROGEN 13 mg/dL (7-18); eGFR NON AFRICAN AMERICAN 74 mL/min (90-120)
[2020-04-01 18:26] LABS: GLUCOSE 266 mg/dL (74-106)
[2020-04-01 18:36] LABS: ALBUMIN 3.3 g/dL (3.4-5.0); ALKALINE PHOSPHATASE 77 U/L (30-120); ALT (SGPT) 46 U/L (10-68); BILIRUBIN - TOTAL 0.36 mg/dL (0.2-1.3); CKMB 1.6 U/L (0.0-3.6); CREATINE KINASE 107 UL (21-232); MAGNESIUM - SERUM 1.8 mg/dL (1.8-2.4); PROTEIN - SERUM 6.9 g/dL (6.4-8.2)
[2020-04-01 18:37] LABS: TROPONIN-I < 0.017 ng/mL (0.000-0.060)
[2020-04-01] MEDS ORDERED: PROTONIX40 MG PO (18:58)
[2020-04-01] MEDS ORDERED: LISINOPRIL2.5 MG PO (18:59)
[2020-04-01 19:21] VITALS: BP 134/60
== END 2020-04-01 19:21 | disposition home or self-care (01) ==
LOC: D.ER 16:49
PROVIDERS: Family Medicine
DX: E11.65 Type 2 diabetes mellitus with hyperglycemia (principal); K21.9 Gastro-esophageal reflux disease without esophagitis; I10 Essential (primary) hypertension; J44.9 Chronic obstructive pulmonary disease, unspecified; E11.40 Type 2 diabetes mellitus with diabetic neuropathy, unspecified; Z79.84 Long term (current) use of oral hypoglycemic drugs; R53.83 Other fatigue

== ENCOUNTER 2020-04-03 10:35 | Day surgery (SDC) | payer MEDICARE ==
[~2020-04-03] VITALS: Ht 188 cm; Wt 169.1 kg
[~2020-04-03 10:35] MED LIST changes: +ATIVAN1 MG PO; +BENTYL 20 MG TA20 MG PO; +CYCLOBENZAPRINE10 MG PO; +LISINOPRIL2.5 MG PO; +PROTONIX40 MG PO
[2020-04-03 10:59] LABS: HEMATOCRIT 45.8 % (42.0-54.0); HEMOGLOBIN 15.1 g/dL (13.5-17.5); MCH 30.3 pg (26.0-34.0); MCV 91.8 fL (80.0-100.0); MEAN PLATELET VOLUME 9.1 fL (7.4-10.4); RBC 4.99 10x6/uL (4.20-6.10); RDW 12.7 % (11.5-14.5); WBC 6.2 10x3/uL (4.8-10.8)
[2020-04-03 11:09] LABS: CALC OSMOLALITY 285 mosm/kg (275-300); CALCIUM 8.6 mg/dL (8.5-10.1); CARBON DIOXIDE 26.2 mmol/L (21.0-32.0); CHLORIDE - SERUM 104 mmol/L (98-107); CREATININE - SERUM 0.9 mg/dL (0.6-1.3); GLUCOSE 283 mg/dL (74-106); POTASSIUM - SERUM 4.2 mmol/L (3.5-5.1); SODIUM 138 mmol/L (136-145); UREA NITROGEN 12 mg/dL (7-18); eGFR NON AFRICAN AMERICAN > 90 mL/min (90-120)
[2020-04-03 12:45] VITALS: BP 132/78; Ht 188 cm; Wt 169.1 kg
--- NOTE | 2020-04-03 13:59 | NUR ---
DC INSTRUCTIONS GIVEN TO PT. STATES UNDERSTANDING. DC'D IV CATH FULLY INTACT. PT LEFT UNIT VIA WC AT 1351.
--- NOTE | 2020-04-04 08:31 | OP ---
PATIENT NAME: EDE PANIAGUA MEDICAL RECORD: [id number] :63 LOCATION:SCOUT ADMISSION DATE: SURGEON: GEMMA HUERTAS DO DATE OF OPERATION: 04/03/2020 PROCEDURE: EGD with biopsies. INDICATIONS FOR PROCEDURE: Dysphagia, GERD, gas and bloating, nausea. SCOPE: Olympus video gastroscope. MEDICATIONS: Propofol 300 mg IV per anesthesia. ESTIMATED BLOOD LOSS: Minimal. COMPLICATIONS: None. FINDINGS: Informed consent was given. The patient was made comfortable with the above medication. After reaching an adequate level of sedation by slow IV push, the patient was placed in the left side. The endoscope was advanced under direct visualization through the mouth to the second portion of the duodenum with ease. The mucosa of the esophagus appeared normal in its entirety, but there was extremely dilated. There were no food particles or fluid retained in the esophagus itself. At the GE junction, there was evidence of LA class A reflux-induced esophagitis and possible Contreras's mucosa. Cold forceps biopsies were taken from this site to submit for histopathology and to rule out the presence of Contreras's. At this site there seemed to be some extrinsic compression, suggesting that the prior intervention in the form of a lap band has slid up to the GE junction and is causing some compression at that site. The endoscope was able to traverse the site without difficulty. The endoscope was retroflexed to view the cardia and fundus where there was evidence of a prior intervention. The fundus and body of the stomach appeared normal. In the antrum and prepyloric regions, there was some erythema and granularity consistent with mild gastritis. Cold forceps, biopsies were taken from the antrum and incisura to submit for histopathology and to rule out the presence of H. pylori. The endoscope was advanced beyond the pylorus into the duodenum, which appeared normal to the second portion. Cold forceps, biopsies were taken to submit for histopathology. The endoscope was withdrawn from the patient. The patient tolerated the procedure well and there were no complications. IMPRESSION: 1. Severely dilated esophagus. 2. 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 3. Evidence of prior surgery in the form of a laparoscopic band placement, which appears to be located at the GE junction and possibly contributing to the patient's symptoms of dysphagia evidenced by dilated esophagus as well as possibly gas and bloating. 4. Mild chronic gastritis changes. PLAN AND RECOMMENDATIONS: 1. Discharge home when recovery parameters are met. 2. Follow up biopsy specimen results. 3. GERD diet and reflux precautions. 4. Increase omeprazole to 40 mg daily. OPERATIVE REPORT [id number] EDE PANIAGUA 5. Consider removal of gastric lap band. 6. If all the same symptoms are present after removal of lap band would recommend proceeding with a manometry study to rule out the presence of achalasia. 7. The patient's symptoms are also consistent with gastroparesis. Could consider a gastric emptying scan prior to removal of lap band to determine if symptoms are gastroparesis in the setting of a diabetic patient. 8. Follow up in GI clinic in 3-4 weeks after increasing omeprazole to determine further course of action and workup. TRANSINT:[id number] Voice Confirmation ID: [id number] DOCUMENT ID: [id number] GEMMA HUERTAS DO at 0831 CC: [id number] DICTATION DATE: 04/03/20 1316 DINING ROOM ATTENDANT: 04/03/20 2229 [facility] 04/03/20 [place] [id number] [place] [address]
== END 2020-04-03 13:51 | disposition home or self-care (01) ==
LOC: D.OPS 10:35
PROVIDERS: Anesthesiology; ATTEND Internal Medicine Gastroenterology
DX: R13.10 Dysphagia, unspecified (principal); K21.9 Gastro-esophageal reflux disease without esophagitis; R14.0 Abdominal distension (gaseous); R11.0 Nausea; E11.9 Type 2 diabetes mellitus without complications; Z79.84 Long term (current) use of oral hypoglycemic drugs; R10.30 Lower abdominal pain, unspecified

== ENCOUNTER 2020-04-15 07:08 | Day surgery (SDC) | payer MEDICARE ==
[~2020-04-15] VITALS: Ht 188 cm; Wt 172.8 kg
[~2020-04-15 07:08] MED LIST changes: -ATIVAN1 MG PO; +ATIVAN2 MG PO; +BENTYL10 MG PO
[2020-04-15 07:59] LABS: CALC OSMOLALITY 286 mosm/kg (275-300); CALCIUM 8.8 mg/dL (8.5-10.1); CARBON DIOXIDE 24.5 mmol/L (21.0-32.0); CHLORIDE - SERUM 105 mmol/L (98-107); CREATININE - SERUM 0.8 mg/dL (0.6-1.3); GLUCOSE 251 mg/dL (74-106); POTASSIUM - SERUM 4.2 mmol/L (3.5-5.1); SODIUM 139 mmol/L (136-145); UREA NITROGEN 15 mg/dL (7-18); eGFR NON AFRICAN AMERICAN > 90 mL/min (90-120)
[2020-04-15 08:00] LABS: BASOPHILS 0.1 % (0-2); EOSINOPHILS 2.2 % (0-7); HEMATOCRIT 45.2 % (42.0-54.0); HEMOGLOBIN 14.9 g/dL (13.5-17.5); IMMATURE GRANULOCYTES 0.3 % (0-5); LYMPHOCYTES 26.6 % (15-50); MCH 30.2 pg (26.0-34.0); MCV 91.5 fL (80.0-100.0); MEAN PLATELET VOLUME 9.6 fL (7.4-10.4); NEUTROPHILS 62.8 % (40-80); PLATELET COUNT 210 10x3/uL (130-400); RBC 4.94 10x6/uL (4.20-6.10); RDW 12.6 % (11.5-14.5); WBC 6.9 10x3/uL (4.8-10.8)
[2020-04-15 08:29] VITALS: BP 121/68; Ht 188 cm; Wt 172.8 kg
[2020-04-15] MEDS ORDERED: HYDROCODON-ACE1 EAC7 PO (11:19)
--- NOTE | 2020-04-15 12:53 | NUR ---
A&Ox4.VSS.NO DISTRESS.PAIN 01/23. TOLERATED DIET RADHA LEMON [place] AND [place]. NO N/V
--- NOTE | 2020-04-15 13:44 | NUR ---
1315-REMOVED IV WITH CATH INTACT,DISPOSED INTO SHARPS,COVERED WITH GUAZE,SECURED WITH MEDIPORE TAPE. AMBULATED TO RESTROOM AND VOIDED WIHTOUT COMPLICATIONS.VSS. NO DISTRESS. DENIES N/V.
--- NOTE | 2020-04-15 13:45 | NUR ---
1330-PT DRESSED. REVIEWED POST OP INSTRUCTIONS AND FOLLOW UP APPOINTMENT.VERBALZIED UNDERSTANDING. ESCORTED OUT VIA W/C BY STAFF WITH SPOUSE AWAITING TO DRIVE HOME
== END 2020-04-15 13:30 | disposition home or self-care (01) ==
LOC: D.OPS 07:08 → D.PAN 10:30 → D.OPS 10:30
PROVIDERS: Anesthesiology; ATTEND Surgery
DX: R13.10 Dysphagia, unspecified (principal); E66.01 Morbid (severe) obesity due to excess calories; Z68.42 Body mass index [BMI] 45.0-49.9, adult; E11.9 Type 2 diabetes mellitus without complications; Z79.84 Long term (current) use of oral hypoglycemic drugs; J44.9 Chronic obstructive pulmonary disease, unspecified; K82.8 Other specified diseases of gallbladder; K80.20 Calculus of gallbladder without cholecystitis without obstruction; Z98.84 Bariatric surgery status

== ENCOUNTER 2020-06-04 19:26 | Inpatient (IN) | payer MEDICARE ==
[~2020-06-04] VITALS: Ht 188 cm; Wt 171.9 kg
[~2020-06-04 19:26] MED LIST changes: +HYDROCODON-ACE1 EAC7 PO
--- NOTE | 2020-06-04 19:30 | NUR ---
RECEIVED, PATIENT TO ROOM 2140 VIA WHEELCHAIR, AAOX4, UP AD СВЕТЛАНА. NO S/S OF DISTRESS OBSERVED, RR EVEN AND UNLABORED ON ROOM AIR. COVID-19 PRECAUTIONS INITIATED. PATIENT DENIES NEEDS AT THIS TIME. CL IN REACH, BED LOCKED AND LOWERED. WILL CTM.
[2020-06-04 22:01] LABS: BASOPHILS 0 % (0-2); EOSINOPHILS 0 % (0-7); HEMATOCRIT 45.6 % (42.0-54.0); HEMOGLOBIN 15.5 g/dL (13.5-17.5); IMMATURE GRANULOCYTES 0.2 % (0-5); LYMPHOCYTES 15.2 % (15-50); MCH 30.3 pg (26.0-34.0); MCV 89.2 fL (80.0-100.0); MONOCYTES 8.5 % (2-11); NEUTROPHILS 76.1 % (40-80); PLATELET COUNT 180 10x3/uL (130-400); RBC 5.11 10x6/uL (4.20-6.10); RDW 12.4 % (11.5-14.5); WBC 8.8 10x3/uL (4.8-10.8)
[2020-06-04 22:22] LABS: ALBUMIN 3.4 g/dL (3.4-5.0); ALKALINE PHOSPHATASE 92 U/L (30-120); ALT (SGPT) 28 U/L (10-68); BILIRUBIN - TOTAL 0.44 mg/dL (0.2-1.3); CALCIUM 8.6 mg/dL (8.5-10.1); CARBON DIOXIDE 28.2 mmol/L (21.0-32.0); CHLORIDE - SERUM 103 mmol/L (98-107); CREATININE - SERUM 0.9 mg/dL (0.6-1.3); POTASSIUM - SERUM 3.9 mmol/L (3.5-5.1); PROTEIN - SERUM 7.3 g/dL (6.4-8.2); SODIUM 137 mmol/L (136-145); UREA NITROGEN 22 mg/dL (7-18); eGFR NON AFRICAN AMERICAN > 90 mL/min (90-120)
[2020-06-04 22:24] LABS: CALC OSMOLALITY 288 mosm/kg (275-300); GLUCOSE 320 mg/dL (74-106); TROPONIN-I < 0.017 ng/mL (0.000-0.060)
[2020-06-05 00:04] VITALS: BP 161/79
[2020-06-05 04:00] VITALS: BP 149/76
[2020-06-05 05:39] LABS: BASOPHILS 0.1 % (0-2); EOSINOPHILS 0.1 % (0-7); HEMATOCRIT 44.6 % (42.0-54.0); HEMOGLOBIN 14.9 g/dL (13.5-17.5); IMMATURE GRANULOCYTES 0.2 % (0-5); LYMPHOCYTES 19.1 % (15-50); MCH 29.9 pg (26.0-34.0); MCHC 33.4 g/dL (31.0-37.0); MCV 89.6 fL (80.0-100.0); MEAN PLATELET VOLUME 9.1 fL (7.4-10.4); MONOCYTES 9.5 % (2-11); PLATELET COUNT 176 10x3/uL (130-400); RBC 4.98 10x6/uL (4.20-6.10); RDW 12.5 % (11.5-14.5); WBC 8.8 10x3/uL (4.8-10.8)
[2020-06-05 06:03] LABS: ALBUMIN 3.3 g/dL (3.4-5.0); ALKALINE PHOSPHATASE 85 U/L (30-120); ALT (SGPT) 24 U/L (10-68); BILIRUBIN - TOTAL 0.42 mg/dL (0.2-1.3); CALC OSMOLALITY 283 mosm/kg (275-300); CALCIUM 8.1 mg/dL (8.5-10.1); CARBON DIOXIDE 27.5 mmol/L (21.0-32.0); CHLORIDE - SERUM 102 mmol/L (98-107); CREATININE - SERUM 0.8 mg/dL (0.6-1.3); MAGNESIUM - SERUM 1.8 mg/dL (1.8-2.4); PHOSPHOROUS 3.6 mg/dL (2.5-4.9); POTASSIUM - SERUM 3.4 mmol/L (3.5-5.1); PROTEIN - SERUM 7.2 g/dL (6.4-8.2); SODIUM 137 mmol/L (136-145); UREA NITROGEN 22 mg/dL (7-18); eGFR NON AFRICAN AMERICAN > 90 mL/min (90-120)
[2020-06-05 06:09] LABS: GLUCOSE 229 mg/dL (74-106)
[2020-06-05 08:33] VITALS: BP 178/89
[2020-06-05 13:49] LABS: BILIRUBIN NEGATIVE (NEGATIVE); KETONE NEGATIVE (NEGATIVE); NITRITE NEGATIVE (NEGATIVE); UROBILINOGEN NORMAL (NORMAL)
[2020-06-05 15:05] VITALS: Ht 188 cm; Wt 171.9 kg
--- NOTE | 2020-06-05 15:15 | NUR ---
I have reviewed this patient and I concur with the Shift Assessment completed by the Licensed Practical Nurse today this shift.
[2020-06-05 20:00] VITALS: BP 152/78
--- NOTE | 2020-06-06 03:58 | NUR ---
I have reviewed this patient and I concur with the Shift Assessment completed by the Licensed Practical Nurse today this shift.
[2020-06-06 05:53] LABS: BASOPHILS 0.1 % (0-2); EOSINOPHILS 0 % (0-7); HEMATOCRIT 43.9 % (42.0-54.0); HEMOGLOBIN 14.5 g/dL (13.5-17.5); IMMATURE GRANULOCYTES 0.3 % (0-5); LYMPHOCYTES 15.7 % (15-50); MCH 29.9 pg (26.0-34.0); MCV 90.5 fL (80.0-100.0); MEAN PLATELET VOLUME 9.1 fL (7.4-10.4); MONOCYTES 7.1 % (2-11); NEUTROPHILS 76.8 % (40-80); PLATELET COUNT 190 10x3/uL (130-400); RBC 4.85 10x6/uL (4.20-6.10); RDW 12.5 % (11.5-14.5); WBC 7.2 10x3/uL (4.8-10.8)
[2020-06-06 06:03] LABS: CALC OSMOLALITY 277 mosm/kg (275-300); CARBON DIOXIDE 25.8 mmol/L (21.0-32.0); CHLORIDE - SERUM 102 mmol/L (98-107); CREATININE - SERUM 0.7 mg/dL (0.6-1.3); GLUCOSE 221 mg/dL (74-106); MAGNESIUM - SERUM 1.8 mg/dL (1.8-2.4); PHOSPHOROUS 3.6 mg/dL (2.5-4.9); POTASSIUM - SERUM 3.5 mmol/L (3.5-5.1); SODIUM 135 mmol/L (136-145); eGFR NON AFRICAN AMERICAN > 90 mL/min (90-120)
[2020-06-06 06:05] LABS: UREA NITROGEN 15 mg/dL (7-18)
--- NOTE | 2020-06-06 07:00 | NUR ---
RECEIVED REPORT. ASSUMED CARE OF PATIENT. PATIENT REMAINS IN ISOLATION FOR POSITIVE COVID RESULTS. PATIENT STATES HE FEELS BETTER TODAY.
[2020-06-06 09:07] VITALS: BP 154/90
--- NOTE | 2020-06-06 09:57 | NUR ---
FSBS 177. 8 UNITS HUMALOG ADMINISTERED PER SLIDING SCALE.
--- NOTE | 2020-06-06 11:31 | NUR ---
FSBS 196. 8 UNITS HUMULIN INSULIN ADMINISTERED PER SLIDING SCALE.
[2020-06-06 13:44] VITALS: BP 146/79
--- NOTE | 2020-06-06 14:13 | NUR ---
MEDICATED FOR TEMP 100.7 AT THIS TIME.
--- NOTE | 2020-06-06 16:21 | NUR ---
FSBS 276. 16 UNITS HUMALOG ADMINISTERED PER SLIDING SCALE. PATIENT SITTING TO SIDE OF BED, STATES HE FEELS BETTER AT THIS TIME AFTER RECEIVING TYLENOL FOR ELEVATED TEMP EARLIER. CALL LIGHT WITHIN REACH. TEA PROVIDED ON REQUEST. NO DISTRESS.
[2020-06-06 16:50] VITALS: BP 141/66
--- NOTE | 2020-06-06 19:30 | NUR ---
PT IN BED, AAO X 3, RESP EVEN AND UNLABORED. NO DISTRESS NOTED, CL IN REACH, SR UP X 2.
[2020-06-06 21:59] VITALS: BP 146/72
--- NOTE | 2020-06-07 01:43 | NUR ---
I have reviewed this patient and I concur with the Shift Assessment completed by the Licensed Practical Nurse today this shift.
[2020-06-07 04:00] VITALS: BP 136/72
--- NOTE | 2020-06-07 04:18 | NUR ---
CHART REVIEW PER PRIMARY NURSE NOTED ORDER FROM 06/06/20 AM FOR 2 OF FFP TO BE ADMINISTERED. NO NOTATION THAT FFP WAS EVER GIVEN. SPOKE WITH LAB AND BLOOD BANK STATES THE SOFTWARE PRODUCT MANAGER, EL, HAD TO COMPLETE SOME PAPERWORK IN ORDER FOR THE FFP TO BE DISPENSED. THIS WOULD INVOLVE THE SOFTWARE PRODUCT MANAGER SPEAKING WITH DR GAO TO GET SOME PAPERWORK DONE. BLOOD BANK STATES THIS MUST BE COMPLETED BEFORE FFP CAN BE PROVIDED. CLARIFIED THAT AT THIS TIME, FFP CANNOT BE GIVEN UNTIL THE SOFTWARE PRODUCT MANAGER GIVES THE OK AND COMPLETES PAPERWORK. WILL RELAY ALL ABOVE INFO TO DAY NURSE IN AM.
[2020-06-07 04:49] LABS: BASOPHILS 0.2 % (0-2); EOSINOPHILS 0 % (0-7); HEMATOCRIT 41.5 % (42.0-54.0); HEMOGLOBIN 14.1 g/dL (13.5-17.5); IMMATURE GRANULOCYTES 0.4 % (0-5); LYMPHOCYTES 14.3 % (15-50); MCH 30.5 pg (26.0-34.0); MCV 89.6 fL (80.0-100.0); MEAN PLATELET VOLUME 8.7 fL (7.4-10.4); MONOCYTES 7.4 % (2-11); NEUTROPHILS 77.7 % (40-80); PLATELET COUNT 146 10x3/uL (130-400); RBC 4.63 10x6/uL (4.20-6.10); RDW 12.5 % (11.5-14.5); WBC 5.7 10x3/uL (4.8-10.8)
[2020-06-07 05:02] LABS: CALC OSMOLALITY 277 mosm/kg (275-300); CALCIUM 8.2 mg/dL (8.5-10.1); CHLORIDE - SERUM 100 mmol/L (98-107); GLUCOSE 217 mg/dL (74-106); MAGNESIUM - SERUM 1.7 mg/dL (1.8-2.4); PHOSPHOROUS 3.8 mg/dL (2.5-4.9); POTASSIUM - SERUM 3.7 mmol/L (3.5-5.1); SODIUM 135 mmol/L (136-145); UREA NITROGEN 15 mg/dL (7-18)
[2020-06-07 05:03] LABS: CREATININE - SERUM 0.9 mg/dL (0.6-1.3); eGFR NON AFRICAN AMERICAN > 90 mL/min (90-120)
--- NOTE | 2020-06-07 07:00 | NUR ---
RECEIVED REPORT. ASSUMED CARE OF PATIENT. PATIENT REMAINS IN DROPLET ISOLATION FOR COVID19. CONTINUE TO AWAIT PAPERWORK FOR CCP ADMINISTRATION.
--- NOTE | 2020-06-07 09:00 | NUR ---
fsbs 263. 16 units humalog administered per sliding scale.
--- NOTE | 2020-06-07 09:30 | NUR ---
CALLED TO PATIENT ROOM, PATIENT COMPLAIN OF DYSPNEA. PATIENT NOTED TO BE SITTING ON SIDE OF BED WITH NO OXYGEN ON, COUGHING UP THICK, TENACIOUS DARK FREITAS SPUTUM. OXYGEN APPLIED VIA NASAL CANULA, O2 SAT 98%. PATIENT STATES HE GUESS HE PANICKED NOT BEING ABLE TO BREATH WHILE COUGHING UP THE SPUTUM. PATIENT SITTING TO SIDE OF BED WITH ATTENTION TO TELEVISION AT THIS TIME. AM MEDS TOLERATED WELL. NO DISTRESS. CALL LIGHT WITHIN REACH. PATIENT REMAINS RESTING WITH O2 VIA NASAL CANULA AT THIS TIME.
[2020-06-07 09:31] VITALS: BP 151/78
--- NOTE | 2020-06-07 11:27 | NUR ---
FSBS 226, 12 UNITS HUMALOG ADMINISTERED PER SLIDING SCALE. NO DISTRESS.
[2020-06-07 13:30] VITALS: BP 130/76
--- NOTE | 2020-06-07 16:05 | NUR ---
FFP UNIT #1 INITIATED AT THIS TIME. NO DISTRESS. TOLERATING INFUSION WELL.
--- NOTE | 2020-06-07 16:15 | NUR ---
FSBS 303. 20 UNITS HUMALOG ADMINISTERED PER SLIDING SCALE. NO DISTRESS.
[2020-06-07 16:22] VITALS: BP 139/66
--- NOTE | 2020-06-07 16:55 | NUR ---
UNIT #2 OF FFP INFUSING AT THIS TIME. TOLERATES INFUSION WELL. NO DISTRESS.
--- NOTE | 2020-06-07 18:00 | NUR ---
PLASMA INFUSION COMPLETE. TOLERATED INFUSION WELL.VVS. CALL LIGHT WITHIN REACH. NO DISTRESS. ATTENTION TOWARD TELEVISION AT THIS TIME.
--- NOTE | 2020-06-07 19:00 | NUR ---
UP IN CHAIR AND DENIES NEEDS AT THIS TIME BED LOW AND LOCKED CALL LIGHT IS WITH PT
[2020-06-08 04:24] LABS: BASOPHILS 0.2 % (0-2); EOSINOPHILS 1.3 % (0-7); HEMATOCRIT 41.6 % (42.0-54.0); HEMOGLOBIN 13.8 g/dL (13.5-17.5); IMMATURE GRANULOCYTES 0.6 % (0-5); MCH 29.7 pg (26.0-34.0); MCHC 33.2 g/dL (31.0-37.0); MCV 89.5 fL (80.0-100.0); MEAN PLATELET VOLUME 8.7 fL (7.4-10.4); NEUTROPHILS 76.9 % (40-80); PLATELET COUNT 166 10x3/uL (130-400); RBC 4.65 10x6/uL (4.20-6.10); RDW 12.4 % (11.5-14.5); WBC 6.3 10x3/uL (4.8-10.8)
[2020-06-08 04:49] LABS: C-REACTIVE PROTEIN 3.8 mg/dL (0.0-0.9); CALC OSMOLALITY 282 mosm/kg (275-300); CALCIUM 8.2 mg/dL (8.5-10.1); CARBON DIOXIDE 28.3 mmol/L (21.0-32.0); CHLORIDE - SERUM 103 mmol/L (98-107); CREATININE - SERUM 0.9 mg/dL (0.6-1.3); FERRITIN 331 ng/mL (3-244); GLUCOSE 218 mg/dL (74-106); LDH 204 U/L (85-227); MAGNESIUM - SERUM 1.9 mg/dL (1.8-2.4); PHOSPHOROUS 3.4 mg/dL (2.5-4.9); POTASSIUM - SERUM 3.7 mmol/L (3.5-5.1); SODIUM 137 mmol/L (136-145); UREA NITROGEN 17 mg/dL (7-18); eGFR NON AFRICAN AMERICAN > 90 mL/min (90-120)
--- NOTE | 2020-06-08 04:52 | NUR ---
I have reviewed this patient and I concur with the Shift Assessment completed by the Licensed Practical Nurse today this shift.
[2020-06-08 08:14] VITALS: BP 159/75
--- NOTE | 2020-06-08 13:00 | NUR ---
Nutrition Follow-up: Diet: Diabetic 2000 yohana ADA PO intake: ~83% average x last 6 meals Last BM: none since admit. Wt: 379# (06/05/20) Meds noted: vit C, Vit D, zinc sulfate, glipizide, SSI, NS@75 Labs noted: POC Glu 251(H) Recommend continue current diet. RD following.
--- NOTE | 2020-06-08 19:30 | NUR ---
PT RESTING IN BED. AFEBRILE. VSS. 800ML OF YELLOW URINE EMPTIED FROM URINAL. HE IS ON 2L NC. O2 SAT 95%. HE DENIES PAIN OR NEEDS. BED IS LOW AND CALL LIGHT IN REACH.
[2020-06-08 20:00] VITALS: BP 150/86
[2020-06-09 04:30] VITALS: BP 158/74
[2020-06-09 05:49] LABS: BASOPHILS 0.2 % (0-2); EOSINOPHILS 0 % (0-7); HEMATOCRIT 36.8 % (42.0-54.0); HEMOGLOBIN 12.2 g/dL (13.5-17.5); IMMATURE GRANULOCYTES 0.7 % (0-5); LYMPHOCYTES 19.3 % (15-50); MCH 29.9 pg (26.0-34.0); MCHC 33.2 g/dL (31.0-37.0); MCV 90.2 fL (80.0-100.0); MEAN PLATELET VOLUME 8.8 fL (7.4-10.4); MONOCYTES 5.1 % (2-11); NEUTROPHILS 74.7 % (40-80); PLATELET COUNT 169 10x3/uL (130-400); RBC 4.08 10x6/uL (4.20-6.10); RDW 12.4 % (11.5-14.5); WBC 5.9 10x3/uL (4.8-10.8)
[2020-06-09 06:17] LABS: ALBUMIN 2.2 g/dL (3.4-5.0); ALKALINE PHOSPHATASE 55 U/L (30-120); ALT (SGPT) 39 U/L (10-68); BILIRUBIN - DIRECT 0.11 mg/dL (0.00-0.30); BILIRUBIN - INDIRECT 0.21 mg/dL (0.00-1.00); BILIRUBIN - TOTAL 0.32 mg/dL (0.2-1.3); CARBON DIOXIDE 27.4 mmol/L (21.0-32.0); CHLORIDE - SERUM 109 mmol/L (98-107); CREATININE - SERUM 0.7 mg/dL (0.6-1.3); PHOSPHOROUS 3.3 mg/dL (2.5-4.9); PROTEIN - SERUM 5.6 g/dL (6.4-8.2); SODIUM 141 mmol/L (136-145); eGFR NON AFRICAN AMERICAN > 90 mL/min (90-120)
--- NOTE | 2020-06-09 07:00 | NUR ---
RECIEVED REPORT. ASSUMED CARE OF PATIENT. PATIENT REMAINS IN ISOLATION FOR COVID19.
[2020-06-09 07:24] VITALS: BP 152/75
[2020-06-09 07:47] LABS: CALC OSMOLALITY 279 mosm/kg (275-300); GLUCOSE 84 mg/dL (74-106); MAGNESIUM - SERUM 1.4 mg/dL (1.8-2.4); UREA NITROGEN 12 mg/dL (7-18)
[2020-06-09 07:50] LABS: CALCIUM 6.9 mg/dL (8.5-10.1)
--- NOTE | 2020-06-09 09:00 | NUR ---
FSBS 210. 12 UNITS HUMALOG ADMINISTERED PER SLIDING SCALE.
--- NOTE | 2020-06-09 11:34 | NUR ---
FSBS 201. 12 UNITS HUMALOG ADMINISTERED PER SLIDING SCALE.
[2020-06-09 12:28] VITALS: BP 148/73
[2020-06-09] MEDS ORDERED: DECADRON4 MG PO (12:31)
[2020-06-09] MEDS ORDERED: OMNICEF300 MG PO (12:31)
[2020-06-09] MEDS ORDERED: VENTOLIN HFA [SP8 GM INH (12:32)
[2020-06-09] MEDS ORDERED: AZITHROMYCIN500 MG PO (12:32)
--- NOTE | 2020-06-09 14:30 | NUR ---
PATIENTOOB TO CHAIR AT BEDSIDE AWAITING TO BE DISCHARGED. ICED TEA PROVIDED. PATIENT DENIES ANY NEEDS. NO DISTRESS.
--- NOTE | 2020-06-09 15:46 | NUR ---
[facility] ON UNIT TO PROVIDE PATIENT WITH LARGE PORTABLE O2 TANK AND CART TO PUSH O2 AROUND IN.
--- NOTE | 2020-06-09 15:59 | MORECARE ---
CASE MANAGEMENT DISCHARGE SUMMARY PATIENT: EDE PANIAGUA UNIT: [id number] ADM DATE: 06/04/20 AGE: 55 : 63 SEX: M ROOM/BED: D.2140 AUTHOR: LAY DICK PHYSICIAN: REFERRING PHYSICIAN: RUBINA CHOWDHURY DO DATE OF SERVICE: 06/09/20 Discharge Plan Patient Name: EDE PANIAGUA Facility: [facility]:[place] : 1965 Planned Disposition: Anticipated Discharge Date: Discharge Date: Expected LOS: Initial Reviewer: [email or web address] Initial Review Date: 06/04/2020 Generated: 06/09/20 4:59 pm External Providers External Provider: Marilu Next Contact Date: Service Request Date: Service Type: Resolution: Reviewer: Comments: Patient Name: EDE PANIAGUA Page [phone] at 1559 All edits/amendments must be made on the electronic document DICTATION DATE: 06/09/209 WASHING TUB OPERATOR: CELESTE 06/09/20 1559 RPT#: [id number] DC DATE: STATUS: ADM IN [facility] [address] [place] [address] END OF REPORT
--- NOTE | 2020-06-09 16:10 | NUR ---
FSBS 365. 24 UNITS HUMALOG ADMINISTERED PER SLIDING SCALE.
[2020-06-09 18:43] VITALS: BP 162/69
--- NOTE | 2020-06-09 19:10 | NUR ---
SEVERAL NEEDS SEEN TO AND PT SET UP FOR A BATH BED LOW AND LOCKED PT TOLERATING ACTIVITY WELL
[2020-06-10 06:18] LABS: BASOPHILS 0.2 % (0-2); EOSINOPHILS 0 % (0-7); HEMOGLOBIN 13.9 g/dL (13.5-17.5); IMMATURE GRANULOCYTES 0.5 % (0-5); LYMPHOCYTES 12.7 % (15-50); MCH 29.6 pg (26.0-34.0); MCHC 33.1 g/dL (31.0-37.0); MCV 89.4 fL (80.0-100.0); MEAN PLATELET VOLUME 8.9 fL (7.4-10.4); MONOCYTES 6.8 % (2-11); NEUTROPHILS 79.8 % (40-80); PLATELET COUNT 192 10x3/uL (130-400); RDW 12.5 % (11.5-14.5); WBC 6.1 10x3/uL (4.8-10.8)
[2020-06-10 06:56] LABS: ALBUMIN 2.7 g/dL (3.4-5.0); ALKALINE PHOSPHATASE 72 U/L (30-120); BILIRUBIN - DIRECT 0.14 mg/dL (0.00-0.30); BILIRUBIN - INDIRECT 0.27 mg/dL (0.00-1.00); BILIRUBIN - TOTAL 0.41 mg/dL (0.2-1.3); CALCIUM 8.4 mg/dL (8.5-10.1); CARBON DIOXIDE 27.1 mmol/L (21.0-32.0); CHLORIDE - SERUM 105 mmol/L (98-107); SODIUM 138 mmol/L (136-145)
[2020-06-10 07:03] LABS: ALT (SGPT) 59 U/L (10-68); CALC OSMOLALITY 282 mosm/kg (275-300); CREATININE - SERUM 0.9 mg/dL (0.6-1.3); GLUCOSE 211 mg/dL (74-106); POTASSIUM - SERUM 3.9 mmol/L (3.5-5.1); UREA NITROGEN 16 mg/dL (7-18); eGFR NON AFRICAN AMERICAN > 90 mL/min (90-120)
[2020-06-10 16:00] VITALS: BP 166/70
--- NOTE | 2020-06-10 16:45 | MORECARE ---
CASE MANAGEMENT DISCHARGE SUMMARY PATIENT: EDE PANIAGUA UNIT: [id number] ADM DATE: 06/04/20 AGE: 55 : 63 SEX: M ROOM/BED: D.2140 AUTHOR: LAY DICK PHYSICIAN: REFERRING PHYSICIAN: RUBINA CHOWDHURY DO DATE OF SERVICE: 06/10/20 Discharge Plan Patient Name: EDE PANIAGUA Facility: [facility]:[place] : 1965 Planned Disposition: Anticipated Discharge Date: Discharge Date: Expected LOS: Initial Reviewer: [email or web address] Initial Review Date: 06/04/2020 Generated: 06/10/20 5:45 pm Comments DCP- Discharge Planning Updated by [email or web address]: Mira Mcintosh on 06/10/20 3:[address] CM notified Charles, with [facility], that the patient has had an increase of his O2 requirements. Unsure of dc date, at this time. [facility] has provided a portable O2 tank and will set up his home concentrator upon DC. Last DP export: 06/09/20 2:59 p Patient Name: EDE PANIAGUA Page [phone] at 1645 All edits/amendments must be made on the electronic document DICTATION DATE: 06/10/20 164 IRONING MACHINE OPERATOR: CELESTE 06/10/20 164 RPT#: [id number] DC DATE: STATUS: ADM IN [facility] [address] [place] [address] END OF REPORT
[2020-06-10 18:51] VITALS: BP 166/70
--- NOTE | 2020-06-10 19:00 | NUR ---
REPORT RECEIVED, WILL CONTINUE POC. PATIENT IS AAOX4, SITTING UP IN CHAIR. NO S/S OF DISTRESS OBSERVED, RR EVEN AND UNLABORED ON 7L HFNC. PATIENT HAS DYSPNEA ON EXERTION. PATIENT DENIES NEEDS AT THIS TIME. CL IN REACH, BED LOCKED AND LOWERED. WILL CTM.
[2020-06-10 22:53] VITALS: BP 161/65
--- NOTE | 2020-06-10 23:31 | NUR ---
PATIENT O2 SAT 85% ON 7L HFNC. PUT ON HOME CPAP AND WENT DOWN TO 84%. RT PUT PATIENT ON 9L HFNC SATS NOW 93%. PAGED DR. CAMARA.
--- NOTE | 2020-06-10 23:35 | NUR ---
RECEIVED CALL BACK FROM DR. CAMARA. PATIENT TO BE PLACED ON BIPAP IF HE DROPS DOWN BELOW 90% AND THAT HE CAN STAY ON THE FLOOR DUE TO HIM BEING IN A NEGATIVE PRESSURE ROOM AND HE WEARS HOME CPAP. RT ROWE AND LALY NOTIFIED.
--- NOTE | 2020-06-11 00:30 | NUR ---
PATIENT C/O NOT BEING ABLE TO SLEEP WITHOUT CPAP. HE STATE'S, "I SNORE AND CHOKE". CALLED LALY RT PATIENT PLACED ON BIPAP AT THIS TIME. COVID-19 PRECAUTIONS MAINTAINED.
[2020-06-11 05:09] VITALS: BP 130/70
[2020-06-11 05:42] LABS: BASOPHILS 0.1 % (0-2); EOSINOPHILS 0 % (0-7); HEMATOCRIT 42.8 % (42.0-54.0); HEMOGLOBIN 14.5 g/dL (13.5-17.5); IMMATURE GRANULOCYTES 0.4 % (0-5); LYMPHOCYTES 8.9 % (15-50); MCH 29.9 pg (26.0-34.0); MCHC 33.9 g/dL (31.0-37.0); MCV 88.2 fL (80.0-100.0); MEAN PLATELET VOLUME 8.8 fL (7.4-10.4); MONOCYTES 4.4 % (2-11); NEUTROPHILS 86.2 % (40-80); PLATELET COUNT 195 10x3/uL (130-400); RBC 4.85 10x6/uL (4.20-6.10); RDW 12.3 % (11.5-14.5)
[2020-06-11 06:12] LABS: ALBUMIN 2.6 g/dL (3.4-5.0); ALKALINE PHOSPHATASE 70 U/L (30-120); ALT (SGPT) 58 U/L (10-68); BILIRUBIN - INDIRECT 0.25 mg/dL (0.00-1.00); BILIRUBIN - TOTAL 0.35 mg/dL (0.2-1.3); CALC OSMOLALITY 285 mosm/kg (275-300); CALCIUM 8.9 mg/dL (8.5-10.1); CARBON DIOXIDE 26.3 mmol/L (21.0-32.0); CHLORIDE - SERUM 105 mmol/L (98-107); CREATININE - SERUM 0.7 mg/dL (0.6-1.3); GLUCOSE 275 mg/dL (74-106); PHOSPHOROUS 4.3 mg/dL (2.5-4.9); POTASSIUM - SERUM 4.4 mmol/L (3.5-5.1); PROTEIN - SERUM 6.9 g/dL (6.4-8.2); SODIUM 137 mmol/L (136-145); UREA NITROGEN 18 mg/dL (7-18); eGFR NON AFRICAN AMERICAN > 90 mL/min (90-120)
[2020-06-11 07:50] VITALS: BP 182/96
--- NOTE | 2020-06-11 08:00 | NUR ---
PT SITTING ON SIDE OF BED EATING HIS BREAKFAST. PT INDEPENDENT IN ROOM. PERSONAL ITEMS AND CALL LIGHT ARE WITHIN REACH.
[2020-06-11 11:36] VITALS: BP 138/59
--- NOTE | 2020-06-11 12:26 | NUR ---
Nutrition Follow-up: Pt remains in droplet isolation; covid-19+. Nursing reports pt eating very well. Diet: Diabetic PO intake: 75-100% No new wt; last wt: 379# (06/05) Labs noted: Glu 275, Alb 2.6 Meds noted: Solumedrol, Glucotrol, Humalog, Pepcid, vitamin D, vitamin C, zinc sulfate, NS @ 75 -Monitor wt; noted daily wts ordered. -RD following.
[2020-06-11 15:39] VITALS: BP 144/58
--- NOTE | 2020-06-11 16:10 | NUR ---
SPOKE WITH THE PT'S /EL. EL WANTS TO COME VISIT HER BUT UNFORTUNATELY THE PT IS UNDER COVID ISOLATION. EL UNDERSTANDS THE PRECAUTIONS. SHE HERSELF IS COMPLETING HER 14 DAY ISOLATION.
--- NOTE | 2020-06-11 19:10 | NUR ---
OBSERVING DROPLET ISOLATION BED LOW AND LOCKED MANY NEEDS SEEN TO
[2020-06-11 21:35] VITALS: BP 168/78
[2020-06-12] VITALS: BP 150/75
[2020-06-12 04:00] VITALS: BP 158/88
[2020-06-12 05:23] LABS: BASOPHILS 0.1 % (0-2); EOSINOPHILS 2.9 % (0-7); HEMATOCRIT 42.4 % (42.0-54.0); HEMOGLOBIN 14.2 g/dL (13.5-17.5); IMMATURE GRANULOCYTES 0.7 % (0-5); LYMPHOCYTES 7.1 % (15-50); MCH 29.7 pg (26.0-34.0); MCHC 33.5 g/dL (31.0-37.0); MCV 88.7 fL (80.0-100.0); MEAN PLATELET VOLUME 8.9 fL (7.4-10.4); MONOCYTES 4.4 % (2-11); NEUTROPHILS 84.8 % (40-80); PLATELET COUNT 226 10x3/uL (130-400); RBC 4.78 10x6/uL (4.20-6.10); RDW 12.4 % (11.5-14.5)
[2020-06-12 05:46] LABS: WBC 12.9 10x3/uL (4.8-10.8)
[2020-06-12 06:01] LABS: ALBUMIN 2.4 g/dL (3.4-5.0); ALKALINE PHOSPHATASE 70 U/L (30-120); ALT (SGPT) 49 U/L (10-68); BILIRUBIN - DIRECT 0.09 mg/dL (0.00-0.30); BILIRUBIN - INDIRECT 0.21 mg/dL (0.00-1.00); CALC OSMOLALITY 290 mosm/kg (275-300); CALCIUM 8.5 mg/dL (8.5-10.1); CARBON DIOXIDE 28.4 mmol/L (21.0-32.0); CHLORIDE - SERUM 104 mmol/L (98-107); CREATININE - SERUM 0.8 mg/dL (0.6-1.3); GLUCOSE 253 mg/dL (74-106); MAGNESIUM - SERUM 1.9 mg/dL (1.8-2.4); PHOSPHOROUS 4.6 mg/dL (2.5-4.9); POTASSIUM - SERUM 4.4 mmol/L (3.5-5.1); PROTEIN - SERUM 6.4 g/dL (6.4-8.2); SODIUM 140 mmol/L (136-145); UREA NITROGEN 21 mg/dL (7-18); eGFR NON AFRICAN AMERICAN > 90 mL/min (90-120)
--- NOTE | 2020-06-12 08:00 | NUR ---
PT EATING BREAKFAST, CALL LIGHT WITHIN REACH. NO NEEDS AT THIS TIME.
[2020-06-12 08:11] VITALS: BP 148/74
--- NOTE | 2020-06-12 08:11 | MORECARE ---
CASE MANAGEMENT DISCHARGE SUMMARY PATIENT: EDE PANIAGUA UNIT: [id number] ADM DATE: 06/04/20 AGE: 55 : 63 SEX: M ROOM/BED: D.2140 AUTHOR: LAY DICK PHYSICIAN: REFERRING PHYSICIAN: RUBINA CHOWDHURY DO DATE OF SERVICE: 06/12/20 Discharge Plan Patient Name: EDE PANIAGUA Facility: [facility]:[place] : 1965 Planned Disposition: Anticipated Discharge Date: Discharge Date: Expected LOS: Initial Reviewer: [email or web address] Initial Review Date: 06/04/2020 Generated: 06/12/20 9:10 am Comments DCP- Discharge Planning Updated by [id number]: Mira Mcintosh on 06/10/20 3:[address] CM notified Charles, with [facility], that the patient has had an increase of his O2 requirements. Unsure of dc date, at this time. [facility] has provided a portable O2 tank and will set up his home concentrator upon DC. Last DP export: 06/10/20 3:45 p Patient Name: EDE PANIAGUA Page [phone] at 0811 All edits/amendments must be made on the electronic document DICTATION DATE: 06/12/20809 HAND CLOTH FOLDER: CELESTE 06/12/20809 RPT#: [id number] DC DATE: STATUS: ADM IN [facility] [address] [place] [address] END OF REPORT
[2020-06-12 10:43] VITALS: BP 144/74
[2020-06-12 15:40] VITALS: BP 134/67
--- NOTE | 2020-06-12 19:30 | NUR ---
PT IN BED, RESP EVEN AND UNLABORED. NO DISTRESS NOTED, CL IN REACH, SR UP X 2.
--- NOTE | 2020-06-12 19:30 | NUR ---
PT UP IN CHAIR, AAO X 3, RESP EVEN AND UNLABORED. NO DISTRESS NOTED, CL IN REACH, SR UP X 2.
--- NOTE | 2020-06-12 19:39 | NUR ---
PT 2800 URNINAL IN URINAL
[2020-06-12 20:48] VITALS: BP 140/68
--- NOTE | 2020-06-13 00:06 | NUR ---
I have reviewed this patient and I concur with the Shift Assessment completed by the Licensed Practical Nurse today this shift.
[2020-06-13 05:00] LABS: BASOPHILS 0 % (0-2); EOSINOPHILS 0 % (0-7); HEMATOCRIT 42.8 % (42.0-54.0); HEMOGLOBIN 14.1 g/dL (13.5-17.5); IMMATURE GRANULOCYTES 0.7 % (0-5); MCH 29.2 pg (26.0-34.0); MCHC 32.9 g/dL (31.0-37.0); MCV 88.6 fL (80.0-100.0); MONOCYTES 5.8 % (2-11); NEUTROPHILS 81.5 % (40-80); PLATELET COUNT 233 10x3/uL (130-400); RBC 4.83 10x6/uL (4.20-6.10); RDW 12.4 % (11.5-14.5); WBC 11.5 10x3/uL (4.8-10.8)
[2020-06-13 05:23] LABS: CALCIUM 8.2 mg/dL (8.5-10.1); CARBON DIOXIDE 29.3 mmol/L (21.0-32.0); CHLORIDE - SERUM 103 mmol/L (98-107); CREATININE - SERUM 0.8 mg/dL (0.6-1.3); MAGNESIUM - SERUM 1.9 mg/dL (1.8-2.4); PHOSPHOROUS 4.2 mg/dL (2.5-4.9); SODIUM 139 mmol/L (136-145); UREA NITROGEN 22 mg/dL (7-18); eGFR NON AFRICAN AMERICAN > 90 mL/min (90-120)
[2020-06-13 05:25] LABS: CALC OSMOLALITY 284 mosm/kg (275-300); GLUCOSE 174 mg/dL (74-106); POTASSIUM - SERUM 3.7 mmol/L (3.5-5.1)
[2020-06-13 05:44] VITALS: BP 127/71
--- NOTE | 2020-06-13 07:00 | NUR ---
RECEIVED REPORT. ASSUMED CARE OF PATIENT. 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
[2020-06-13 09:00] VITALS: BP 131/75
--- NOTE | 2020-06-13 12:04 | NUR ---
FSBS 291 - 8 UNITS HUMALOG ADMINISTERED PER SLIDING SCALE.
--- NOTE | 2020-06-13 12:05 | NUR ---
FSBS 291. 16 UNITS HUMALOG ADMINISTERED PER SLIDING SCALE.
[2020-06-13 12:53] VITALS: BP 118/61
--- NOTE | 2020-06-13 15:48 | NUR ---
FSBS 316. 20 UNITS HUMALOG ADMINISTERED PER SLIDING SCALE.
[2020-06-13 16:44] VITALS: BP 151/73
[2020-06-13 20:00] VITALS: BP 139/64
--- NOTE | 2020-06-13 23:40 | NUR ---
INITIAL ROUNDS COMPLETED AT 1999 HRS. PT DENIED ANY DISCOMFORT. FSBS 336. 20 UNITS HUMALOG GIVEN SUB-Q TO UPPER R ABD. ASSESSMENT COMPLETED AT THAT TIME. PT ALERT AND ORIENTED TOPERSON,PLACE AND TIME. ALANIS. IV TO RAC WITH NS AT 100CC/HR. IV PATENT. LUNGS DIMINISHED INBASES BILAT. O2 7.5LHFO2. ALANIS. PALPABLE PERIPHERAL PULSES. PM MEDS GIVEN. FSBS NOW 303. 20 UNITS HUMALOG GIVEN SUB-Q TO UPPER R ARM. SR UP X1, CALL LIGHT WITHIN REACH AND BIPAP IN USE.
[2020-06-14] VITALS: BP 138/81
--- NOTE | 2020-06-14 02:12 | NUR ---
PT RESTING WITH EYES CLOSED. RESP EVEN AND REGULAR. SR UP X1,CALL LIGHT WITHIN REACH.
--- NOTE | 2020-06-14 03:44 | NUR ---
I have reviewed this patient and I concur with the Shift Assessment completed by the Licensed Practical Nurse today this shift.
[2020-06-14 04:00] VITALS: BP 157/85
--- NOTE | 2020-06-14 04:10 | NUR ---
FSBS 213. 12 UNITS HUMALOG GIVEN SUB-Q TO UPPER R ARM. CALL LIGHT WITHIN REACH.
--- NOTE | 2020-06-14 05:53 | NUR ---
ATTEMPT X2 FOR AM LAB DRAW WITHOUT SUCCESS. LAB CALLED.
--- NOTE | 2020-06-14 06:19 | NUR ---
VSS THROUGHOUT NIGHT. SR PER CM. PT DENIED ANY DISCOMFORT. NEEDS MET; WILL CONTINUE TO MONITOR.
[2020-06-14 06:51] LABS: BASOPHILS 0.1 % (0-2); EOSINOPHILS 0 % (0-7); HEMATOCRIT 41.9 % (42.0-54.0); HEMOGLOBIN 14.2 g/dL (13.5-17.5); IMMATURE GRANULOCYTES 0.4 % (0-5); LYMPHOCYTES 7.2 % (15-50); MCHC 33.9 g/dL (31.0-37.0); MCV 88.4 fL (80.0-100.0); MEAN PLATELET VOLUME 8.9 fL (7.4-10.4); MONOCYTES 4.2 % (2-11); NEUTROPHILS 88.1 % (40-80); PLATELET COUNT 196 10x3/uL (130-400); RBC 4.74 10x6/uL (4.20-6.10); RDW 12.2 % (11.5-14.5); WBC 11.5 10x3/uL (4.8-10.8)
--- NOTE | 2020-06-14 07:00 | NUR ---
RECEIVED REPORT. ASSUMED CARE OF PATIENT. PATIENT CONTINUES IN DROPLET ISOLATION FOR COVID 19.
[2020-06-14 07:04] LABS: CALC OSMOLALITY 277 mosm/kg (275-300); CALCIUM 8.1 mg/dL (8.5-10.1); CHLORIDE - SERUM 102 mmol/L (98-107); CREATININE - SERUM 0.9 mg/dL (0.6-1.3); GLUCOSE 204 mg/dL (74-106); MAGNESIUM - SERUM 2.1 mg/dL (1.8-2.4); PHOSPHOROUS 4.4 mg/dL (2.5-4.9); SODIUM 135 mmol/L (136-145); UREA NITROGEN 19 mg/dL (7-18); eGFR NON AFRICAN AMERICAN > 90 mL/min (90-120)
[2020-06-14 07:08] LABS: POTASSIUM - SERUM 4.5 mmol/L (3.5-5.1)
[2020-06-14 08:28] VITALS: BP 139/77
--- NOTE | 2020-06-14 08:40 | NUR ---
FSBS 166. 8 UNITS HUMALOG ADMINISTERED PER SLIDING SCALE.
--- NOTE | 2020-06-14 12:05 | NUR ---
FSBS 346. 20 UNITS HUMALOG ADMINISTERED PER SLIDING SCALE AT THIS TIME.
--- NOTE | 2020-06-14 12:30 | NUR ---
REDUCED O2 T0 6 LITERS PART OF THE WEANING PROCESS PER .PATIENT TOLERATING O2 AT 6L/MIN ON HFNC WELL.
[2020-06-14 12:58] VITALS: BP 134/67
[2020-06-14 14:52] VITALS: BP 128/67
--- NOTE | 2020-06-14 15:34 | NUR ---
FSBS 364. 240UNITS HUMALOG ADMINISTERED PER SLIDING SCALE AT THIS TIME. PATIENT SITTING UP TO CHAIR AT BEDSIDE. O2 VIA HFNC AT 4.5L/MIN. O2 SAT = 94% PATIENT WITH ATTENTION TOWARD TELEVISION. CALL LIGHT WITHIN REACH. NO DISTRESS.
--- NOTE | 2020-06-14 17:26 | NUR ---
DIET MESSAGE SENT REQUESTING PM TRAY FOR PATIENT HIS TRAY WAS ACCIDENTALLY GIVEN TO ANOTHER PATIENT BY MISTAKE.
[2020-06-14 21:23] VITALS: BP 107/68
[2020-06-15 04:19] LABS: BASOPHILS 0.1 % (0-2); EOSINOPHILS 0 % (0-7); HEMATOCRIT 44.8 % (42.0-54.0); HEMOGLOBIN 15.2 g/dL (13.5-17.5); IMMATURE GRANULOCYTES 0.8 % (0-5); LYMPHOCYTES 7.8 % (15-50); MCHC 33.9 g/dL (31.0-37.0); MCV 88.4 fL (80.0-100.0); MEAN PLATELET VOLUME 8.8 fL (7.4-10.4); MONOCYTES 5.7 % (2-11); NEUTROPHILS 85.6 % (40-80); PLATELET COUNT 243 10x3/uL (130-400); RBC 5.07 10x6/uL (4.20-6.10); RDW 12.3 % (11.5-14.5); WBC 11.6 10x3/uL (4.8-10.8)
[2020-06-15 04:30] LABS: CALC OSMOLALITY 287 mosm/kg (275-300); CALCIUM 8.1 mg/dL (8.5-10.1); CARBON DIOXIDE 29.7 mmol/L (21.0-32.0); CHLORIDE - SERUM 102 mmol/L (98-107); CREATININE - SERUM 0.9 mg/dL (0.6-1.3); MAGNESIUM - SERUM 1.9 mg/dL (1.8-2.4); PHOSPHOROUS 3.9 mg/dL (2.5-4.9); POTASSIUM - SERUM 4.2 mmol/L (3.5-5.1); SODIUM 138 mmol/L (136-145); UREA NITROGEN 21 mg/dL (7-18); eGFR NON AFRICAN AMERICAN > 90 mL/min (90-120)
[2020-06-15 04:33] LABS: GLUCOSE 255 mg/dL (74-106)
[2020-06-15 05:20] VITALS: BP 160/80
[2020-06-15 07:38] VITALS: BP 138/78
[2020-06-15 12:02] VITALS: BP 150/75
[2020-06-15 15:02] VITALS: BP 139/72
--- NOTE | 2020-06-15 17:07 | NUR ---
PT SITTING UP IN RECLINER CHAIR WITH FEET PROPPED UP ON BED. PT STATES HE HAS NO FURTHER NEEDS AT THIS TIME. CL IN REACH. WILL CONTINUE WITH POC.
--- NOTE | 2020-06-15 19:00 | NUR ---
DIESEL ENGINE I PIPE FITTER HELPED PT WITH BEDPAN IN THE BED AND CLEANED PT UP. PT CALLED NURSE NAVIGATOR STATED SHE WAS LEFT IN THE BATHROOM AND IS STUCK ON THE TOILET. PT IS UNABLE TO GET TO THE BATHROOM. PT IS CURRENTLY LAYING IN THE BED WITH CALL LIGHT IN REACH.
[2020-06-15 21:40] VITALS: BP 151/77
[2020-06-16] VITALS: BP 147/80
[2020-06-16 04:34] LABS: BASOPHILS 0 % (0-2); EOSINOPHILS 0 % (0-7); HEMATOCRIT 43.1 % (42.0-54.0); HEMOGLOBIN 14.5 g/dL (13.5-17.5); IMMATURE GRANULOCYTES 0.4 % (0-5); MCH 29.8 pg (26.0-34.0); MCHC 33.6 g/dL (31.0-37.0); MCV 88.5 fL (80.0-100.0); MONOCYTES 4.9 % (2-11); NEUTROPHILS 88.7 % (40-80); PLATELET COUNT 236 10x3/uL (130-400); RBC 4.87 10x6/uL (4.20-6.10); RDW 12.4 % (11.5-14.5); WBC 11.4 10x3/uL (4.8-10.8)
[2020-06-16 05:15] LABS: CALC OSMOLALITY 283 mosm/kg (275-300); CARBON DIOXIDE 31.2 mmol/L (21.0-32.0); CHLORIDE - SERUM 101 mmol/L (98-107); CREATININE - SERUM 0.8 mg/dL (0.6-1.3); GLUCOSE 281 mg/dL (74-106); POTASSIUM - SERUM 4.7 mmol/L (3.5-5.1); SODIUM 135 mmol/L (136-145); UREA NITROGEN 25 mg/dL (7-18); eGFR NON AFRICAN AMERICAN > 90 mL/min (90-120)
--- NOTE | 2020-06-16 07:20 | NUR ---
RECIEVE REPORT. RESTING IN BED WITH EYES CLOSED. NO SIGNS OF DISTRESS. CONTINUE PLAN OF CARE AND SAFETY PRECAUTIONS.
[2020-06-16 09:04] VITALS: BP 152/83
[2020-06-16 12:24] VITALS: BP 135/75
--- NOTE | 2020-06-16 13:38 | NUR ---
Nutrition Follow-up: Pt in droplet isolation; covid-19+. Chart reviewed. Eating well. Diet: Diabetic PO intake: 100% x 3 yesterday Wt: 379# (06/05) Labs noted: Na 135, Glu 281, Ca 8.0 Meds noted: Solumedrol, Pepcid, vitamin C, vitamin D, Zinc Sulfate, Glucotrol, Humalog, NS @ 75 -Monitor wt; noted daily wts ordered. -RD following.
--- NOTE | 2020-06-16 16:19 | MORECARE ---
CASE MANAGEMENT DISCHARGE SUMMARY PATIENT: EDE PANIAGUA UNIT: [id number] ADM DATE: 06/04/20 AGE: 55 : 63 SEX: M ROOM/BED: D.2140 AUTHOR: LAY DICK PHYSICIAN: REFERRING PHYSICIAN: RUBINA CHOWDHURY DO DATE OF SERVICE: 06/16/20 Discharge Plan Patient Name: EDE PANIAGUA Facility: [facility]:[place] : 1965 Planned Disposition: Anticipated Discharge Date: Discharge Date: Expected LOS: Initial Reviewer: [email or web address] Initial Review Date: 06/04/2020 Generated: 06/16/20 5:19 pm Comments DCP- Discharge Planning Updated by [email or web address]: Clarisa Dietrich on 06/16/20 3:[address] CM FAXED UPDATED WALK TEST FOR HOME AND PORTABLE OXYGEN TO [facility] FOR POTENTIAL DC TOMORROW. CM WILL CONTINUE TO ASSIST IN DC PLANNING. CLARISA DIETRICH MSN,RN,CM DCP- Discharge Planning Updated by [id number]: Mira Mcintosh on 06/10/20 3:[address] CM notified Charles, with [facility], that the patient has had an increase of his O2 requirements. Unsure of dc date, at this time. [facility] has provided a portable O2 tank and will set up his home concentrator upon DC. Last DP export: 06/12/20 7:11 a Patient Name: EDE PANIAGUA Page [id number] at 1619 All edits/amendments must be made on the electronic document DICTATION DATE: 06/16/20 1619 NP: CELESTE 06/16/20 1619 RPT#: [id number] DC DATE: STATUS: ADM IN [facility] [address] [place] [address] END OF REPORT
--- NOTE | 2020-06-16 19:00 | NUR ---
PT DENIES NEEDS AT THIS TIME BED LOW AND LOCKED AND CALL LIGHT IS IN REACH
[2020-06-16 20:00] VITALS: BP 133/61
[2020-06-17 04:00] VITALS: BP 121/63
[2020-06-17 04:40] LABS: BASOPHILS 0.1 % (0-2); EOSINOPHILS 0.2 % (0-7); HEMATOCRIT 46.2 % (42.0-54.0); HEMOGLOBIN 15.3 g/dL (13.5-17.5); IMMATURE GRANULOCYTES 0.7 % (0-5); LYMPHOCYTES 16.4 % (15-50); MCH 29.8 pg (26.0-34.0); MCHC 33.1 g/dL (31.0-37.0); MCV 90.1 fL (80.0-100.0); MEAN PLATELET VOLUME 8.9 fL (7.4-10.4); MONOCYTES 9.2 % (2-11); NEUTROPHILS 73.4 % (40-80); PLATELET COUNT 258 10x3/uL (130-400); RBC 5.13 10x6/uL (4.20-6.10); RDW 12.6 % (11.5-14.5); WBC 12.3 10x3/uL (4.8-10.8)
[2020-06-17 04:49] LABS: CALCIUM 7.9 mg/dL (8.5-10.1); CARBON DIOXIDE 31.4 mmol/L (21.0-32.0); CHLORIDE - SERUM 102 mmol/L (98-107); SODIUM 138 mmol/L (136-145); UREA NITROGEN 24 mg/dL (7-18); eGFR NON AFRICAN AMERICAN 82 mL/min (90-120)
[2020-06-17 05:05] LABS: CALC OSMOLALITY 284 mosm/kg (275-300); GLUCOSE 191 mg/dL (74-106); POTASSIUM - SERUM 3.8 mmol/L (3.5-5.1)
[2020-06-17 07:08] VITALS: BP 125/65
--- NOTE | 2020-06-17 07:20 | NUR ---
RECEIVE SHIFT REPORT. UP AND WALKING AROUND. STATES HE IS READY TO GO HOME. DENIES NEEDS AT THIS TIME. WILL CONTINUE PLAN OF CARE AND SAFETY PRECAUTIONS.
--- NOTE | 2020-06-17 10:35 | NUR ---
D/C RIGHT FOREARM IV, TIP INTACT. PATIENT READY TO GO HOME. STATES IS DOWNSTAIRS WAITING. DISCUSSED WITH RODRIGO.
[2020-06-17 10:47] VITALS: BP 129/78
--- NOTE | 2020-06-17 11:31 | MORECARE ---
CASE MANAGEMENT DISCHARGE SUMMARY PATIENT: EDE PANIAGUA UNIT: [id number] ADM DATE: 06/04/20 AGE: 55 : 63 SEX: M ROOM/BED: D.2140 AUTHOR: LAY DICK PHYSICIAN: REFERRING PHYSICIAN: RUBINA CHOWDHURY DO DATE OF SERVICE: 06/17/20 Discharge Plan Patient Name: EDE PANIAGUA Facility: [facility]:[place] : 1965 Planned Disposition: Anticipated Discharge Date: Discharge Date: Expected LOS: Initial Reviewer: [email or web address] Initial Review Date: 06/04/2020 Generated: 06/17/20 12:30 pm Comments DCP- Discharge Planning Updated by [id number]: Mira Mcintosh on 06/17/20 10:[address] CM contacted patient via telephone, to verify there are no home needs. Patient verifies same. Patient has his portable O2 from [facility] [place]. Instructed patient to contact [facility] for home concentrator, upon arrival to his home. DC IMM explained over the phone and signed paperwork placed in the DC packet. Voices no other needs. DCP- Discharge Planning Updated by [email or web address]: Clarisa Dietrich on 06/16/20 3:[address] CM FAXED UPDATED WALK TEST FOR HOME AND PORTABLE OXYGEN TO [facility] FOR POTENTIAL DC TOMORROW. CM WILL CONTINUE TO ASSIST IN DC PLANNING. CLARISA DIETRICH MSN,RN,CM DCP- Discharge Planning Updated by [email or web address]: Mira Mcintosh on 06/10/20 3:[address] CM notified Charles, with [facility], that the patient has had an increase of his O2 requirements. Unsure of dc date, at this time. [facility] has provided a portable O2 tank and will set up his home concentrator upon DC. Coverage Notice Reviewer: [id number] - Mira Mcintosh Notice Issued Date-Time: 06/17/2020 11:25 Notice Type: IM Discharge Notice Notice Delivered To: Patient Relationship to Patient: Self Endocrinology Teacher Name: Ede Paniagua Delivery Method: PHONE - Phone Abril Days: Prior Verbal Notification: Recipient Understood Notice: Yes Recipient Signature: Yes Med Rec Note Co-signed by Attending: Coverage Notice Comment: DC IMM explained to patient. Permission given per patient and placed in patient's chart. Copy to chart. Last DP export: 06/16/20 3:19 pm Patient Name: EDE PANIAGUA Page 94151 at 1131 All edits/amendments must be made on the electronic document DICTATION DATE: 06/17/20 113 RESPIRATORY TECH: CELESTE 06/17/20 1130 RPT#: [id number] DC DATE: STATUS: ADM IN [facility] [address] [place] [address] END OF REPORT
--- NOTE | 2020-06-17 12:19 | NUR ---
PATIENT D/C HOME TO FAMILY. TAKEN OUT TO AT ED ENTRANCE VIA WHEELCHAIR. REMAINS FREE FROM INJURY. DISCHARGE INSTRUCTIONS GIVEN VERBALLY AND VISUALLY.
--- NOTE | 2020-06-17 16:14 | MORECARE ---
CASE MANAGEMENT DISCHARGE SUMMARY PATIENT: EDE PANIAGUA UNIT: [id number] ADM DATE: 06/04/20 AGE: 55 : 63 SEX: M ROOM/BED: D.2140 AUTHOR: LAY DICK PHYSICIAN: REFERRING PHYSICIAN: RUBINA CHOWDHURY DO DATE OF SERVICE: 06/17/20 Discharge Plan Patient Name: EDE PANIAGUA Facility: [facility]:[place] : 1965 Planned Disposition: Home Anticipated Discharge Date: 06/17/20 Discharge Date: 06/17/2020 Expected LOS: 13 Initial Reviewer: [email or web address] Initial Review Date: 06/04/2020 Generated: 06/17/20 5:13 pm Comments DCP- Discharge Planning Updated by [email or web address]: Mira Mcintosh on 06/17/20 10:[address] CM contacted patient via telephone, to verify there are no home needs. Patient verifies same. Patient has his portable O2 from [facility] [place]. Instructed patient to contact [facility] [place] for home concentrator, upon arrival to his home. DC IMM explained over the phone and signed paperwork placed in the DC packet. Voices no other needs. DCP- Discharge Planning Updated by [id number]: Clarisa Dietrich on 06/16/20 3:[address] CM FAXED UPDATED WALK TEST FOR HOME AND PORTABLE OXYGEN TO [facility] FOR POTENTIAL DC TOMORROW. CM WILL CONTINUE TO ASSIST IN DC PLANNING. CLARISA DIETRICH MSN,RN,CM DCP- Discharge Planning Updated by [id number]: Mira Mcintosh on 06/10/20 3:[address] CM notified Charles, with [facility] [place], that the patient has had an increase of his O2 requirements. Unsure of dc date, at this time. [facility] [place] has provided a portable O2 tank and will set up his home concentrator upon DC. 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 Permission given per patient and placed in patient's chart. Copy to chart. 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
== END 2020-06-17 12:20 | disposition home or self-care (01) | DRG 177 ==
LOC: D.M2 19:26
PROVIDERS: Family Medicine; Internal Medicine Pulmonary Disease; ADMIT Family Medicine; ATTEND Family Medicine
PROC: XW033E5 Introduction of Remdesivir Anti-infective into Peripheral Vein, Percutaneous Approach, New Technology Group 5 (ICD-10-PCS; principal; 2020-06-08)
DX: U07.1 COVID-19 (principal); J96.21 Acute and chronic respiratory failure with hypoxia; J18.9 Pneumonia, unspecified organism; J44.1 Chronic obstructive pulmonary disease with (acute) exacerbation; R04.2 Hemoptysis; J44.0 Chronic obstructive pulmonary disease with (acute) lower respiratory infection; J98.11 Atelectasis; K21.9 Gastro-esophageal reflux disease without esophagitis; I10 Essential (primary) hypertension; E78.5 Hyperlipidemia, unspecified; E11.40 Type 2 diabetes mellitus with diabetic neuropathy, unspecified; F41.9 Anxiety disorder, unspecified

== ENCOUNTER 2021-01-20 16:52 | Emergency (ER) | payer MEDICARE ==
[~2021-01-20] VITALS: Ht 188 cm; Wt 194.5 kg
[~2021-01-20 16:52] MED LIST changes: +AZITHROMYCIN500 MG PO; +DECADRON4 MG PO; +OMNICEF300 MG PO; +VENTOLIN HFA [SP8 GM INH
[2021-01-20 16:58] VITALS: Ht 188 cm; Wt 194.5 kg
[2021-01-20] MEDS ORDERED: LASIX40 MG PO (17:06)
[2021-01-20 17:26] LABS: CALC OSMOLALITY 285 mosm/kg (275-300); CALCIUM 8.7 mg/dL (8.5-10.1); CARBON DIOXIDE 27.3 mmol/L (21.0-32.0); CHLORIDE - SERUM 100 mmol/L (98-107); CREATININE - SERUM 1.2 mg/dL (0.6-1.3); POTASSIUM - SERUM 3.7 mmol/L (3.5-5.1); SODIUM 136 mmol/L (136-145); UREA NITROGEN 14 mg/dL (7-18); eGFR NON AFRICAN AMERICAN 66 mL/min (90-120)
[2021-01-20 17:28] LABS: APTT 25.3 SECONDS (22.8-39.4); INR 1.11 (0.85-1.17); PROTIME 13.2 SECONDS (11.6-15.0)
[2021-01-20 17:34] LABS: BASOPHILS 0.3 % (0-2); EOSINOPHILS 1.2 % (0-7); HEMATOCRIT 45.5 % (42.0-54.0); IMMATURE GRANULOCYTES 0.1 % (0-5); MCH 30.2 pg (26.0-34.0); MCV 91.7 fL (80.0-100.0); MEAN PLATELET VOLUME 9.3 fL (7.4-10.4); NEUTROPHIL ABS# 4.74 10x3/uL (1.78-5.38); NEUTROPHILS 62.4 % (40-80); PLATELET COUNT 238 10x3/uL (130-400); RBC 4.96 10x6/uL (4.20-6.10); RDW 13.1 % (11.5-14.5); WBC 7.6 10x3/uL (4.8-10.8)
[2021-01-20 17:39] LABS: GLUCOSE 339 mg/dL (74-106)
[2021-01-20 17:44] LABS: ALBUMIN 3.4 g/dL (3.4-5.0); ALKALINE PHOSPHATASE 96 U/L (30-120); ALT (SGPT) 43 U/L (10-68); CKMB 1.5 U/L (0.0-3.6); CREATINE KINASE 332 UL (21-232); MAGNESIUM - SERUM 1.7 mg/dL (1.8-2.4); PROTEIN - SERUM 7.4 g/dL (6.4-8.2); TROPONIN-I < 0.017 ng/mL (0.000-0.060)
[2021-01-20 20:59] VITALS: BP 155/61
== END 2021-01-20 19:15 | disposition home or self-care (01) ==
LOC: D.ER 16:52
PROVIDERS: Family Medicine
DX: R06.02 Shortness of breath (principal); E11.40 Type 2 diabetes mellitus with diabetic neuropathy, unspecified; I10 Essential (primary) hypertension; E78.5 Hyperlipidemia, unspecified; J44.9 Chronic obstructive pulmonary disease, unspecified; K21.9 Gastro-esophageal reflux disease without esophagitis; Z79.84 Long term (current) use of oral hypoglycemic drugs; M54.2 Cervicalgia; M25.512 Pain in left shoulder